=== PATIENT | male | born 1940 | race Caucasian/White ===

== ENCOUNTER 2018-01-03 10:30 | Inpatient (IN) | payer OTHER ==
[2018-01-03] MEDS ORDERED: NS 1,000 ML IV ONE (11:24)
[2018-01-03] MEDS ORDERED: PROMETHAZINE HCL 25 MG/ML INJ IVP ONE (11:25)
[2018-01-03 11:49] LABS: PLATELET COUNT 135 10^3/uL (150-400)
--- NOTE | 2018-01-03 12:20 | CPEKG ---
Heart Rate: 56 RR Interval: 1071 P-R Interval: 196 QRSD Interval: 94 QT Interval: 460 QTC Interval: 444 P Mentcle: 45 QRS Mentcle: -13 T Wave Mentcle: 26 EKG Severity - ABNORMAL ECG - EKG Impression: SINUS RHYTHM EKG Impression: LEFT ATRIAL ABNORMALITY Electronically Signed By: Linh Valentine 03-Jan-2018 15:21:49
[2018-01-03 12:32] LABS: INR 3.52 (0.83-1.16)
[2018-01-03] MEDS ORDERED: PANTOPRAZOLE SODIUM 40 MG VIAL IVP ONE (12:35)
--- NOTE | 2018-01-03 13:50 | EDPHY ---
H & P Stated Complaint: n/v/d dizzyness back pain Time Seen by Provider: 01/03/18 11:01 HPI/ROS: CHIEF COMPLAINT: Abdominal pain with nausea vomiting and diarrhea HISTORY OF PRESENT ILLNESS: Patient is a 77-year-old male with a history of lung transplant and multiple lower extremity DVTs here complaining of nausea vomiting and diarrhea for the last 3 days. Patient denies any history of gastrointestinal bleed or diverticulitis. He has noticed dark stools for the last 2 or 3 days. He was evaluated by Pulmonary Clinic at the [facility] in [place] earlier this week and was told that he was doing quite well. He noticed acutely worsening abdominal pain this morning and felt dizzy while home. Dizziness is described as lightheaded with movement which improved while stationary and denies any vertiginous symptoms. He is able to walk without difficulty. He is taking Coumadin for multiple lower extremity DVTs the last of which was 4 years ago. He has no history of pulmonary embolism or stroke. REVIEW OF SYSTEMS: Constitutional: No fever, no chills. Eyes: No discharge. ENT: No sore throat. Cardiovascular: No chest pain, no palpitations. Respiratory: No cough, no shortness of breath. Gastrointestinal: + abdominal pain, + vomiting. Genitourinary: No hematuria. Musculoskeletal: + back pain. Skin: No rashes. Neurological: No headache, + dizziness. Source: Patient, Family Exam Limitations: No limitations - Personal History Current Tetanus/Diphtheria Vaccine: Yes Current Tetanus Diphtheria and Acellular Pertussis (TDAP): Yes - Medical/Surgical History Hx Asthma: No Hx Chronic Respiratory Disease: No Hx Diabetes: No Hx Cardiac Disease: Yes Hx Renal Disease: No Hx Cirrhosis: No Hx Alcoholism: No Hx HIV/AIDS: No Hx Splenectomy or Spleen Trauma: No Other PMH: hypertension, hyperlipidemia, dvt, RLS, bilat lung transplant, prostatectomy cardiac stents - Social History Smoking Status: Former smoker - Physical Exam Exam: General Appearance: Alert and no distress. Eyes: Pupils equal and round no injection. No nystagmus Respiratory: Chest is nontender, lungs are clear to auscultation. Cardiac: regular rate and rhythm. Gastrointestinal: Abdomen is soft and nontender other than mild epigastric pain with deep palpation, no masses, bowel sounds normal. Stool is dark brown/ black. Musculoskeletal: Neck is supple and nontender. Extremities have full range of motion and are nontender. Skin: No rashes or lesions. Neuro: Cranial nerves grossly intact moving all 4 extremities Constitutional: Initial Vital Signs Temperature (C) 36.4 C 01/03/18 10:37 Heart Rate 67 01/03/18 10:37 Respiratory Rate 18 01/03/18 10:37 Blood Pressure 104/53 L 01/03/18 10:37 O2 Sat (%) 95 01/03/18 10:37 O2 Delivery Mode Room Air O2 (L/minute) 2 Allergies/Adverse Reactions: levofloxacin [From Levaquin] Allergy (Verified 01/03/18 10:34) Sulfa (Sulfonamide Antibiotics) Allergy (Verified 01/03/18 10:34) Home Medications: Medication Instructions Recorded Acetylcysteine 600 mg PO BID 03/26/16 [Y-Dmnxoe-w-Cysteine] Alendronate Sodium 35 mg PO 03/26/16 Azithromycin 500 mg PO [facility] 03/26/16 Docusate Sodium [Colace 100 MG (*)] 200 mg PO BID 03/26/16 Everolimus [Zortress] 0.25 mg PO BID 03/26/16 Ferrous Sulfate [Ferrous Sulf 325 325 mg PO DAILY 03/26/16 MG (*)] Herbals/Supplements -Info Only 1 ea PO DAILY 03/26/16 Itraconazole [Sporanox 100 mg (*)] 100 mg PO 03/26/16 Magnesium Oxide [Magnesium Oxide 400 mg PO BID 03/26/16 400 mg (*)] Metoprolol Tartrate [Lopressor 25 50 mg PO BID 03/26/16 mg (*)] Pramipexole Di-HCl [Mirapex 0.25 0.25 mg PO DAILY@20 03/26/16 mg (*)] Pravastatin Sodium 20 mg PO 03/26/16 Pregabalin [Lyrica 50mg (*)] 50 mg PO TID@,12,22 03/26/16 Pyridoxine HCl [Vitamin B-6 100 mg 50 mg PO 03/26/16 (*)] Sulfamethox/Tmp 800/160 mg 1 tab PO [facility] 03/26/16 [Bactrim DS] Tacrolimus Anhydrous [Prograf 0.5 1 mg PO BID 03/26/16 MG (*)] Valsartan [Diovan (*)] 160 mg PO 03/26/16 clonazePAM [klonoPIN (*)] 1 mg PO DAILY@22 03/26/16 predniSONE 7.5 mg PO DAILY 03/26/16 valGANciclovir [ValCYTE] 450 mg PO BID 03/26/16 Acetaminophen [Tylenol 325mg (*)] 650 mg PO Q4 PRN #0 tab 03/28/16 Warfarin Sodium [Coumadin 2.5MG 1.25 mg PO MOWEFRSA #0 tab 03/28/16 (*)] Warfarin Sodium [Coumadin 2.5MG 2.5 mg PO SUTUTH #0 tab 03/28/16 (*)] traMADol [Ultram 50 mg (*)] 25 - 50 mg PO Q6 PRN #30 tab 03/28/16 Medical Decision Making - Diagnostics EKG Interpretation: Sinus bradycardia without QT prolongation or ischemic changes Imaging Results: Imaging Impressions Abdomen/Pelvis CT 01/03/18 12:36 Impression: 1. Nonobstructive nephrolithiasis bilaterally. 2. Increased size of hiatal hernia. Lower esophageal wall thickening, which could represent esophagitis. 3. No evidence of bowel obstruction. No acute colitis. Relatively minimal diverticular disease. 4. Stable subcentimeter hepatic parenchymal cysts. 5. New, mild L4 superior endplate compression. Findings were communicated by telephone with Dr. Marquez Perdue at 2017 13:20 ED Course/Re-evaluation: 77-year-old male here with abdominal pain nausea and vomiting and diarrhea all likely secondary to upper GI bleed social with elevated INR. Patient was hemodynamically stable in the emergency room with systolic blood pressure ranging from upper 90s to 105. He was mentating well was alert and oriented and did not complain of any chest pain, shortness of breath, dizziness. CT abdomen showed esophagitis but no bowel perforation or inflammation of the colon or diverticulitis. Hospitalist was consulted regarding reversal of INR and recommendation was made to give FFP. Protonix bolus 40 mg was given in addition to 1 L normal saline. Patient felt improved after normal saline bolus. Gastroenterology was paged. Patient was typed and crossed. Differential Diagnosis: Upper GI bleed, diverticulitis, esophageal gait is, hemorrhage, coagulopathy - Data Points Laboratory Results: Laboratory Results 01/03/18 11:35 01/03/18 11:35 01/03/18 01/03/18 01/03/18 13:00 12:26 12:14 WBC RBC Hgb Hct MCV MCH MCHC RDW Plt Count MPV Neut % (Auto) Lymph % (Auto) [place] % (Auto) Eos % (Auto) Baso % (Auto) Nucleat RBC Rel Count Absolute Neuts (auto) Absolute Lymphs (auto) Absolute Monos (auto) Absolute Eos (auto) Absolute Basos (auto) Absolute Nucleated RBC Immature Gran % Immature Gran # PT INR Sodium Potassium Chloride Carbon Dioxide Anion Gap BUN Creatinine Estimated GFR Glucose Calcium POC Troponin I 0.01 ng/mL ng/mL (0.00-0.08) Lipase Urine Color PALE YELLOW Urine Appearance CLEAR Urine pH 6.0 (5.0-7.5) Ur Specific [place] 1.016 (1.002-1.030) Urine Protein NEGATIVE (NEGATIVE) Urine Ketones NEGATIVE (NEGATIVE) Urine Blood NEGATIVE (NEGATIVE) Urine Nitrate NEGATIVE (NEGATIVE) Urine Bilirubin NEGATIVE (NEGATIVE) Urine Urobilinogen NEGATIVE EU EU (0.2-1.0) Ur Leukocyte Esterase NEGATIVE (NEGATIVE) Urine Glucose NEGATIVE (NEGATIVE) Stool Occult Bld Scrn POSITIVE H (NEGATIVE) Patient ABO/Rh Antibody Screen 01/03/18 01/03/18 01/03/18 11:55 11:35 11:35 WBC RBC Hgb Hct MCV MCH MCHC RDW Plt Count MPV Neut % (Auto) Lymph % (Auto) [place] % (Auto) Eos % (Auto) Baso % (Auto) Nucleat RBC Rel Count Absolute Neuts (auto) Absolute Lymphs (auto) Absolute Monos (auto) Absolute Eos (auto) Absolute Basos (auto) Absolute Nucleated RBC Immature Gran % Immature Gran # PT 35.0 SEC H SEC (12.0-15.0) INR 3.52 H (0.83-1.16) Sodium 142 mEq/L mEq/L (135-145) Potassium 4.7 mEq/L mEq/L (3.3-5.0) Chloride 106 mEq/L mEq/L (97-110) Carbon Dioxide 28 mEq/l mEq/l (22-31) Anion Gap 8 mEq/L mEq/L (8-16) BUN 85 mg/dL H mg/dL (7-23) Creatinine 1.7 mg/dL H mg/dL (0.7-1.3) Estimated GFR 39 Glucose 121 mg/dL H mg/dL (70-100) Calcium 8.8 mg/dL mg/dL (8.5-10.4) POC Troponin I Lipase 109 IU/L IU/L (23-300) Urine Color Urine Appearance Urine pH Ur Specific [place] Urine Protein Urine Ketones Urine Blood Urine Nitrate Urine Bilirubin Urine Urobilinogen Ur Leukocyte Esterase Urine Glucose Stool Occult Bld Scrn Patient ABO/Rh Pending Antibody Screen Pending 01/03/18 11:35 WBC 5.93 10^3/uL 10^3/uL (3.80-9.50) RBC 2.42 10^6/uL L 10^6/uL (4.40-6.38) Hgb 7.8 g/dL L g/dL (13.7-17.5) Hct 24.1 % L % (40.0-51.0) MCV 99.6 fL fL (81.5-99.8) MCH 32.2 pg pg (27.9-34.1) MCHC 32.4 g/dL g/dL (32.4-36.7) RDW 15.7 % H % (11.5-15.2) Plt Count 135 10^3/uL L 10^3/uL (150-400) MPV 9.7 fL fL (8.7-11.7) Neut % (Auto) 73.3 % % (39.3-74.2) Lymph % (Auto) 14.8 % L % (15.0-45.0) [place] % (Auto) 10.5 % % (4.5-13.0) Eos % (Auto) 0.7 % % (0.6-7.6) Baso % (Auto) 0.2 % L % (0.3-1.7) Nucleat RBC Rel Count 0.0 % % (0.0-0.2) Absolute Neuts (auto) 4.35 10^3/uL 10^3/uL (1.70-6.50) Absolute Lymphs (auto) 0.88 10^3/uL L 10^3/uL (1.00-3.00) Absolute Monos (auto) 0.62 10^3/uL 10^3/uL (0.30-0.80) Absolute Eos (auto) 0.04 10^3/uL 10^3/uL (0.03-0.40) Absolute Basos (auto) 0.01 10^3/uL L 10^3/uL (0.02-0.10) Absolute Nucleated RBC 0.00 10^3/uL 10^3/uL (0-0.01) Immature Gran % 0.5 % % (0.0-1.1) Immature Gran # 0.03 10^3/uL 10^3/uL (0.00-0.10) PT INR Sodium Potassium Chloride Carbon Dioxide Anion Gap BUN Creatinine Estimated GFR Glucose Calcium POC Troponin I Lipase Urine Color Urine Appearance Urine pH Ur Specific [place] Urine Protein Urine Ketones Urine Blood Urine Nitrate Urine Bilirubin Urine Urobilinogen Ur Leukocyte Esterase Urine Glucose Stool Occult Bld Scrn Patient ABO/Rh Antibody Screen Medications Given: Discontinued Medications Sodium Chloride (Ns) 1,000 mls @ 0 mls/hr IV EDNOW ONE; Wide Open PRN Reason: Protocol Stop: 01/03/18 11:25 Last Admin: 01/03/18 11:40 Dose: 1,000 mls Pantoprazole Sodium (Protonix) 40 mg IVP ONCE ONE Stop: 01/03/18 12:36 Last Admin: 01/03/18 12:53 Dose: 40 mg Promethazine HCl (Phenergan) 12.5 mg IVP ONCE ONE Stop: 01/03/18 11:26 Last Admin: 01/03/18 11:41 Dose: 12.5 mg Point of Care Test Results: Chemistry 01/03/18 12:14 POC Troponin I 0.01 ng/mL ng/mL (0.00-0.08)
[2018-01-03] MEDS ORDERED: ONDANSETRON DISINTEGRATING 4 MG TAB PO PRN (14:56)
[2018-01-03] MEDS ORDERED: ONDANSETRON 4 MG/2 ML VIAL IVP PRN (14:56)
[2018-01-03] MEDS ORDERED: NS 1,000 ML IV SCH (15:00)
[2018-01-03] MEDS ORDERED: PANTOPRAZOLE SODIUM 40 MG VIAL IVP SCH (15:00)
--- NOTE | 2018-01-03 15:15 | PDGENHP ---
History and Physical - Chief Complaint GIB - History of Present Illness 77 yo male with h/o lung transplant, htn, hld presents to ED with N/V/D and dark stool. He developed low back pain 4 days ago. He has known degenerative disc disease at L5-S1. This spread into his left side and has been persistent for past 4 days. Yesterday, he developed epigastric abdominal pain. This morning he felt dizzy and clammy. He had multiple episodes of diarrhea, which he describes as dark and loose. Denies BPBRP or melena. He felt very nauseous and tried to vomit, but was unable to bring anything up. He is on coumadin for h/o recurrent DVT x2, last diagnosed 4 yrs ago. INR is 3.5. His first DVT was provoked by long distance travel. The 2nd DVT was unprovoked. He denies CP, felt a little SOB during diarrhea and dizziness. He denies weight loss. He notes a distant h/o PUD, diagnosed by endoscopy. He came to the ED and was found to have a hgb of 7.8 with heme positive stool. He is admitted for further evaluation of GI bleed. History Information - Allergies/Home Medication List Allergies/Adverse Reactions: levofloxacin [From Levaquin] Allergy (Verified 01/03/18 10:34) Sulfa (Sulfonamide Antibiotics) Allergy (Verified 01/03/18 10:34) Home Medications: Alendronate Sodium 35 mg PO [facility]INES 03/26/16 [Last Taken 12/29/17] Azithromycin 500 mg PO MWF 03/26/16 [Last Taken 03/26/16] Docusate Sodium [Colace 100 MG (*)] 200 mg PO BID 03/26/16 [Last Taken 01/03/18] Everolimus [Zortress] 0.25 mg PO BID 03/26/16 [Last Taken 01/03/18] Ferrous Sulfate [Ferrous Sulf 325 MG (*)] 325 mg PO DAILY 03/26/16 [Last Taken 01/03/18] Herbals/Supplements -Info Only 1 ea PO DAILY 03/26/16 [Last Taken Unknown] Itraconazole [Sporanox 100 mg (*)] 100 mg PO HS 03/26/16 [Last Taken 03/26/16] Magnesium Oxide [Magnesium Oxide 400 mg (*)] 400 mg PO BID 03/26/16 [Last Taken 01/02/18] Metoprolol Tartrate [Lopressor 25 mg (*)] 25 mg PO BID 03/26/16 [Last Taken ] Pramipexole Di-HCl [Mirapex 0.25 mg (*)] 0.25 mg PO DAILY@20 03/26/16 [Last Taken 01/03/18] Pravastatin Sodium 20 mg PO HS 03/26/16 [Last Taken 01/02/18] Pregabalin [Lyrica 50mg (*)] 50 mg PO TID@,,03/26/16 [Last Taken 01/03/18 ] Pyridoxine HCl [Vitamin B-6 100 mg (*)] 50 mg PO HS 03/26/16 [Last Taken ] Sulfamethox/Tmp 800/160 mg [Bactrim DS] 1 tab PO MWF 03/26/16 [Last Taken ] Tacrolimus Anhydrous [Prograf 0.5 MG (*)] 1 mg PO BID 03/26/16 [Last Taken 01/03] Valsartan [Diovan (*)] 160 mg PO HS 03/26/16 [Last Taken 01/02/18] predniSONE 5 mg PO DAILY 03/26/16 [Last Taken 01/03/18] valGANciclovir [ValCYTE] 450 mg PO BID 03/26/16 [Last Taken 01/03/18] Calcium Carb W/Vit D [Calcium Carb W/Vit D 500/200 (*)] 500 mg PO BID 01/03/18 [ Last Taken 01/02/18] Warfarin Sodium [Coumadin 2.5MG (*)] 1.25 mg PO SUTUTH 01/03/18 [Last Taken ] Warfarin Sodium [Coumadin 2.5MG (*)] 2.5 mg PO MOWEFRSA 01/03/18 [Last Taken ] I have personally reviewed and updated: family history, medical history, social history, surgical history - Past Medical History coronary artery disease, DVT, GERD, hypertension, hyperlipidemia Additional medical history: CAD - stent 2001. HAL on cpap. RLS - Surgical History Additional surgical history: Lung transplant 2010 for COPD. prostatectomy 2015. Moh's surgery for BCC and SCC. Shmuel fundoplication 2013 - Family History Additional family history: Dad age 49 colon cancer - Social History Smoking Status: Former smoker Alcohol Use: Other (1 drink a day) Drug Use: None Additional social history: , lives independently, he is retired property accountant Review of Systems Review of Systems: ROS: 10pt was reviewed & negative except for what was stated in HPI & below Physical Exam Physical Exam: Temp Pulse Resp BP Pulse Ox 36.7 C 61 16 130/64 H 95 01/03/18 14:28 01/03/18 14:28 01/03/18 14:28 01/03/18 14:28 01/03/18 14:28 Constitutional: no apparent distress Eyes: PERRL Ears, Nose, Mouth, Throat: moist mucous membranes Cardiovascular: regular rate and rhythym Respiratory: no respiratory distress, clear to auscultation Gastrointestinal: normoactive bowel sounds, soft, non-tender abdomen Skin: warm Musculoskeletal: full muscle strength Neurologic: AAOx3 Psychiatric: interacting appropriately Lab Data & Imaging Review 01/03/18 15:20 01/03/18 11:35 WBC 5.93 10^3/uL (3.80-9.50) 01/03/18 11:35 RBC 2.42 10^6/uL (4.40-6.38) L 01/03/18 11:35 Hgb 7.8 g/dL (13.7-17.5) L 01/03/18 11:35 Hct 24.1 % (40.0-51.0) L 01/03/18 11:35 MCV 99.6 fL (81.5-99.8) 01/03/18 11:35 MCH 32.2 pg (27.9-34.1) 01/03/18 11:35 MCHC 32.4 g/dL (32.4-36.7) 01/03/18 11:35 RDW 15.7 % (11.5-15.2) H 01/03/18 11:35 Plt Count 135 10^3/uL (150-400) L 01/03/18 11:35 MPV 9.7 fL (8.7-11.7) 01/03/18 11:35 Neut % (Auto) 73.3 % (39.3-74.2) 01/03/18 11:35 Lymph % (Auto) 14.8 % (15.0-45.0) L 01/03/18 11:35 [place] % (Auto) 10.5 % (4.5-13.0) 01/03/18 11:35 Eos % (Auto) 0.7 % (0.6-7.6) 01/03/18 11:35 Baso % (Auto) 0.2 % (0.3-1.7) L 01/03/18 11:35 Nucleat RBC Rel Count 0.0 % (0.0-0.2) 01/03/18 11:35 Absolute Neuts (auto) 4.35 10^3/uL (1.70-6.50) 01/03/18 11:35 Absolute Lymphs (auto) 0.88 10^3/uL (1.00-3.00) L 01/03/18 11:35 Absolute Monos (auto) 0.62 10^3/uL (0.30-0.80) 01/03/18 11:35 Absolute Eos (auto) 0.04 10^3/uL (0.03-0.40) 01/03/18 11:35 Absolute Basos (auto) 0.01 10^3/uL (0.02-0.10) L 01/03/18 11:35 Absolute Nucleated RBC 0.00 10^3/uL (0-0.01) 01/03/18 11:35 Immature Gran % 0.5 % (0.0-1.1) 01/03/18 11:35 Immature Gran # 0.03 10^3/uL (0.00-0.10) 01/03/18 11:35 PT 35.0 SEC (12.0-15.0) H 01/03/18 11:55 INR 3.52 (0.83-1.16) H 01/03/18 11:55 Sodium 142 mEq/L (135-145) 01/03/18 11:35 Potassium 4.7 mEq/L (3.3-5.0) 01/03/18 11:35 Chloride 106 mEq/L (97-110) 01/03/18 11:35 Carbon Dioxide 28 mEq/l (22-31) 01/03/18 11:35 Anion Gap 8 mEq/L (8-16) 01/03/18 11:35 BUN 85 mg/dL (7-23) H 01/03/18 11:35 Creatinine 1.7 mg/dL (0.7-1.3) H 01/03/18 11:35 Estimated GFR 39 01/03/18 11:35 Glucose 121 mg/dL (70-100) H 01/03/18 11:35 Calcium 8.8 mg/dL (8.5-10.4) 01/03/18 11:35 POC Troponin I 0.01 ng/mL (0.00-0.08) 01/03/18 12:14 Lipase 109 IU/L (23-300) 01/03/18 11:35 Urine Color PALE YELLOW 01/03/18 13:00 Urine Appearance CLEAR 01/03/18 13:00 Urine pH 6.0 (5.0-7.5) 01/03/18 13:00 Ur Specific [place] 1.016 (1.002-1.030) 01/03/18 13:00 Urine Protein NEGATIVE (NEGATIVE) 01/03/18 13:00 Urine Ketones NEGATIVE (NEGATIVE) 01/03/18 13:00 Urine Blood NEGATIVE (NEGATIVE) 01/03/18 13:00 Urine Nitrate NEGATIVE (NEGATIVE) 01/03/18 13:00 Urine Bilirubin NEGATIVE (NEGATIVE) 01/03/18 13:00 Urine Urobilinogen NEGATIVE EU (0.2-1.0) 01/03/18 13:00 Ur Leukocyte Esterase NEGATIVE (NEGATIVE) 01/03/18 13:00 Urine Glucose NEGATIVE (NEGATIVE) 01/03/18 13:00 Stool Occult Bld Scrn POSITIVE (NEGATIVE) H 01/03/18 12:26 Patient ABO/Rh A POSITIVE 01/03/18 11:35 Antibody Screen NEGATIVE 01/03/18 11:35 Assessment & Plan Assessment: 77 yo male with h/o DVT x2 on chronic anticoagulation admitted with GIB GIB - hemodynamically stable. Hgb was ~12 03/2016, now 7.8 --> 7.5. EGD today neg for upper GI source of bleeding. Note positive family h/o colon cancer. Pt states he is due for colonoscopy. -1 u prbc's now to keep hgb >8 given CAD -trend h&h -prep for colonoscopy in am per Dr. Acevedo Supratherapeutic INR of 3.5 on arrival - 2 u FFP, vit K for reversal, follow. May require repeat FFP in am if still elevated. H/O DVT x2 - last DVT was 4 yrs ago. -INR reversal as above Diarrhea - send GI pathogen panel, c-scope planned for am Acute on chronic back pain - CT showed new, mild L4 compression fx -consider MRI L-spine for further evaluation once stabilized from GIB standpoint -pain control: tylenol, prn oxy, dilaudid Hypertension - Normotensive on arrival. With suspected GI bleed, defer anti- hypertensives for now, resume as indicated CAD s/p stent - resume BB when it's clear BP will tolerate, cont statin, no anti -platelets with GIB H/O lung transplant - Cont tacrolimus, everolimus, pplx meds Immunosuppression Full code Dispo - admit to inpatient, anticipate >48 hrs hospitalization for ongoing management of GIB, diarrhea, back pain
[2018-01-03] MEDS ORDERED: ACETAMINOPHEN 325 MG TAB PO PRN (15:33)
[2018-01-03] MEDS ORDERED: traMADol 50 MG TAB PO PRN (15:33)
[2018-01-03] MEDS ORDERED: MIDAZOLAM 2 MG/2 ML VIAL ONE (16:47)
[2018-01-03] MEDS ORDERED: EPINEPHrine 1 MG/10 ML SYR IVP ONE (16:47)
[2018-01-03] MEDS ORDERED: fentaNYL 100 MCG/2 ML INJ ONE (16:47)
--- NOTE | 2018-01-03 17:01 | PDPROPOC ---
Sedation Plan of Care Sedation Plan of Care: mental status noted, patient educated of risks, benefits , alternatives, patient can tolerate sedation ASA Classification: ASA 2 Planned drugs: fentanyl, midazolam Mallampati Score: Class 1 Mallampati Reference Image: Patient passed 3-3-2 rule?: Yes
[2018-01-03] MEDS ORDERED: PEG 3350/NA SULF,BICARB,CL/KCL (GAVILYTE-G) 4000 ML BTL PO ONE (17:20)
--- NOTE | 2018-01-03 17:26 | GIREPORT ---
[facility] - Endoscopy Department Patient Name: Jaime Crews Procedure Date: 01/03/2018 3:49 PM Patient Type: Inpatient Attending MD/ ER Physician: Anshul Acevedo MD Procedure: Upper GI endoscopy Indications: Note dictated, consult appreciated. Melena (confirmed by rectal exam). Denies heartburn. Last colonoscopy several years ago; "due for another one," as per his transplant doctors. Providers: Anshul Acevedo MD Medicines: Fentanyl 100 micrograms IV, Midazolam 3.5 mg IV Complications: No immediate complications. Description of Procedure: After obtaining informed consent, the endoscope was passed under direct vision. Throughout the procedure, the patient's blood pressure, pulse, and oxygen saturations were monitored continuously. The Endoscope was intro duced through the mouth, and advanced to the second part of duodenum. Findings: No blood present. The esophagus was normal. No significant hiatal hernia or thickened esophagus (suspect CT false). The stomach was normal. The examined duodenum and ampulla were normal. Estimated Blood Loss: Estimated blood loss: none. Post Op Diagnosis: - No source for anemia, melena found. ? colonic source, exacerbated by overanticoagulation. Recommendation: - clears; NPO p MN - prep - colonoscopy tomorrow - serial H/Hs, trf prbc prn. If Hct drops significantly, suggestive of continued active bleeding (doubt), recommend totally reversing anticoagulation with vit K, more FFP, etc. - change PPI to oral preventatively - d/c iron, colace for prep Thank you for allowing me to help in the management of this patient. Attending Participation: I personally performed the entire procedure. Kristina Landers MD Anshul Acevedo MD 01/03/2018 5:26:19 PM This report has been signed electronicallyPeter MD Kristina Number of Addenda: 0 Note Initiated On: 01/03/2018 3:49 PM [email or web address]
[2018-01-03] MEDS ORDERED: fentaNYL 100 MCG/2 ML INJ IVP ONE (17:42)
[2018-01-03] MEDS ORDERED: MIDAZOLAM 2 MG/2 ML VIAL IVP ONE (17:42)
--- NOTE | 2018-01-03 18:11 | GCON ---
[f rep st] CONSULTATION GASTROENTEROLOGY INPATIENT CONSULTATION DATE OF CONSULTATION: 01/03/2018 REFERRING PHYSICIAN: Laxmi Ha MD CHIEF COMPLAINT: I was kindly requested to see Thomas by Dr. Laxmi Ha in consultation for a chief complaint of melena and anemia. HISTORY OF PRESENT ILLNESS: He is a 77-year-old white male, who yesterday developed some epigastric abdominal pain. This morning, he felt dizzy, clammy. He had multiple episodes of diarrhea, which he describes as dark in color, loose. No bright red blood. He had some nausea. He denies aspirin, nonsteroidals. He denies heartburn. He has a distant history of peptic ulcer, diagnosed by endoscopy. He states he had a colonoscopy done several years ago, which was "okay." He states his transplant doctors would like him to get another one this year. PAST MEDICAL HISTORY: 1. As above. 2. Lung transplant in 2010. 3. Coronary artery disease. 4. Hypertension. 5. Elevated lipids. 6. CAD with a heart stent. 7. Prostatectomy. 8. Mohs surgery. 9. Past Shmuel fundoplication. 10. Otherwise, noncontributory. MEDICATIONS: Home medications include alendronate, azithromycin, Colace, iron, Sporanox, magnesium oxide, Lopressor, Mirapex, a statin, Lyrica, Tacrolimus, Diovan, 5 mg of prednisone daily, Valcyte and Coumadin. Inpatient medications include IV pantoprazole 40 mg q.6 and IV fluids. SOCIAL HISTORY: He is . His 's name is Pricilla, telephone #[phone]. FAMILY HISTORY: Negative for similar bleeding. REVIEW OF SYSTEMS: Positive pertinent review of systems as per my HPI. Otherwise, complete review of systems is negative. PHYSICAL EXAM: CONSTITUTIONAL: Nontoxic-appearing, pleasant gentleman. SKIN: Warm, dry. EYES: Pupils equal, round, reactive to light and accommodation. EARS, NOSE, MOUTH AND THROAT: Oropharynx without masses, moist mucosa. HEART: Normal S2, normal PMI. RESPIRATORY: Lungs clear to auscultation and percussion anteriorly. GASTROINTESTINAL: Abdomen soft, nontender. NEUROLOGIC: Grossly nonfocal, cranial nerves grossly intact. PSYCHIATRIC: Orientation, insight appropriate. MUSCULOSKELETAL: Strength grossly normal throughout, normal station. LABORATORIES: Include the above. Hematocrit 24.1%, then 23.1%. MCV normal. Platelet count 135,000. Prothrombin time 35 with an INR 3.52. BUN 85 with a creatinine of 1.7. Stool Hemoccult positive. Urinalysis negative. CT scan of the abdomen and pelvis without IV contrast shows hiatal hernia and some thickened esophageal wall distally. Bilateral kidney stones, nonobstructive. ASSESSMENT: Anemia, probable melena. This most likely represents an upper gastrointestinal source. With his past history, a recurrent peptic ulcer is possible. Gastritis, AVM, gastric cancer also possible. A colonic source, such as in the right colon, causing black stools is possible, but less likely. PLAN: 1. Urgent upper endoscopy. Certainly, with his age, lung transplant, coronary artery disease, long-term use of anticoagulation, elevated lipids, etc., he is at increased risk for this procedure. However, suspect the benefits outweigh the risks, and suspect he will do well. 2. Further management depending on the above. Thank you for allowing me to help in the management of this patient. Copy requested to: Transplant Physician (if known) /[id number]/[id number]
[2018-01-03] MEDS ORDERED: PHYTONADIONE 5 MG in NS 50 ML IV ONE (18:56)
[2018-01-03] MEDS ORDERED: oxyCODONE IR 5 MG TAB PO PRN (19:20)
--- NOTE | 2018-01-03 19:34 | PDMN ---
Medical Necessity Medical necessity: C/M review: est. 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
[2018-01-03] MEDS ORDERED: DOCUSATE SODIUM 100 MG CAP PO SCH (21:00)
[2018-01-03] MEDS: TACROLIMUS 1 MG CAP PO SCH (21:15)
[2018-01-03] MEDS: PRAVASTATIN SODIUM 20 MG TAB PO SCH (21:15)
[2018-01-03] MEDS: PRAMIPEXOLE 0.25 MG TAB PO SCH (21:15)
[2018-01-03] MEDS: PREGABALIN 50 MG CAP PO SCH (21:15)
[2018-01-03] MEDS: MAGNESIUM OXIDE 400 MG TAB PO SCH (21:17)
[2018-01-03] MEDS: ITRACONAZOLE 100 MG CAP PO SCH (21:17)
[2018-01-03] MEDS: EVEROLIMUS 0.25 MG PO SCH (21:19)
[2018-01-03 23:23] LABS: INR 1.95 (0.83-1.16); PROTIME(PATIENT) 22.3 SEC (12.0-15.0)
[2018-01-04 05:20] LABS: INR 1.51 (0.83-1.16); PROTIME(PATIENT) 18.4 SEC (12.0-15.0)
[2018-01-04 05:27] LABS: PLATELET COUNT 112 10^3/uL (150-400)
[2018-01-04] MEDS: MAGNESIUM OXIDE 400 MG TAB PO SCH ×2 (08:54→20:24)
[2018-01-04] MEDS: predniSONE 5 MG TAB PO SCH (08:54)
[2018-01-04] MEDS: PREGABALIN 50 MG CAP PO SCH ×3 (08:54→22:03)
[2018-01-04] MEDS: TACROLIMUS 1 MG CAP PO SCH ×2 (08:54→20:24)
[2018-01-04] MEDS: EVEROLIMUS 0.25 MG PO SCH ×3 (08:55→20:27)
[2018-01-04] MEDS: PANTOPRAZOLE SODIUM 40 MG TAB PO SCH (08:55)
[2018-01-04] MEDS ORDERED: FERROUS SULFATE 325 MG TAB PO SCH (09:00)
[2018-01-04] MEDS: HYDROmorphONE/DILAUDID 1 MG/ML INJ IVP PRN ×2 (09:34→10:28)
--- NOTE | 2018-01-04 11:54 | ASMTCMCOM ---
CM Note CM Note Notes: CM reviewed Pt's records for D?C planning. Pt is a 77 y/o male who has been hospitalized due to a GI bleed. An upper endoscopy was ordered. Pt presently lives independently with his , [facility] #[phone]. D/C needs will continue to be evaluated. D/C Plan: TBD Date Signed: 01/04/2018 11:54 AM Electronically Signed By:Vashti Mohr
--- NOTE | 2018-01-04 14:12 | HOSPPROG ---
Hospitalist Progress Note Assessment/Plan: 77 yo male with h/o DVT x2 on chronic anticoagulation admitted with anemia with presumed GIB GIB - hemodynamically stable. Hgb was ~12 03/2016. Since admission hgb 7.8 --> 6.1 --> 8.0 after 2 units prbcs. EGD neg for upper GI source of bleeding. Note positive family h/o colon cancer. -colonoscopy today -s/p 2 u prbc's -cont to trend h&h, transfuse as indicated Supratherapeutic INR of 3.5 on arrival - 2 u FFP, vit K for reversal, INR this am 1.5. H/O DVT x2 - last DVT was 4 yrs ago. -INR reversal as above Diarrhea - GI pathogen panel neg -c-scope today as above Acute on chronic back pain - CT showed new, mild L4 compression fx -MRI in am to evaluate chronicity and determine if candidate for intervention / stabilization while INR sub-therapeutic given severity of pain -pain control: tylenol, prn oxy, dilaudid Hypertension - Normotensive on arrival. With suspected GI bleed, defer anti- hypertensives for now, resume as indicated CAD s/p stent - resume BB when it's clear BP will tolerate, cont statin, no anti -platelets with GIB H/O lung transplant - Cont tacrolimus, everolimus, pplx meds Immunosuppression Full code Dispo - cont inpt, ADD uncertain Subjective: Pt feels ok. Completed colon prep, no BRBPR, but some possibly old dark stool. No fevers/chills. Still with significant low back pain. No CP, SOB or dizziness. Objective: Vital Signs Temp Pulse Resp BP Pulse Ox 36.4 C 72 16 165/69 H 99 01/04/18 11:29 01/04/18 11:29 01/04/18 11:29 01/04/18 11:29 01/04/18 11:29 Microbiology 01/04/18 00:30 Gastrointestinal Tract Panel (PCR) - Final Stool No Organism Detected Laboratory Results 01/04/18 11:20 01/04/18 04:37 01/03/18 01/04/18 01/05/18 05:59 05:59 05:59 Intake Total 2600 Output Total 452 Balance 2148 PT 18.4 SEC (12.0-15.0) H 01/04/18 04:37 INR 1.51 (0.83-1.16) H 01/04/18 04:37 - Physical Exam Constitutional: no apparent distress Eyes: PERRL Ears, Nose, Mouth, Throat: moist mucous membranes Cardiovascular: regular rate and rhythym Respiratory: no respiratory distress, clear to auscultation Gastrointestinal: normoactive bowel sounds, soft, non-tender abdomen Skin: warm Musculoskeletal: full muscle strength, other (+midline lumbar tenderness over L4 vertebra) Neurologic: AAOx3 Psychiatric: interacting appropriately ICD10 Worksheet Patient Problems: Problems Problem Status Onset Hematuria Acute Immunosuppressed status Acute Lung transplant status, bilateral Acute Pelvic fluid collection Acute
--- NOTE | 2018-01-04 14:54 | PDANEPAE ---
ANE History of Present Illness anemia s/f colonoscopy ANE Past Medical History - Cardiovascular History Hx Chest Pain: No Hx Coronary Artery / Peripheral Vascular Disease: No - Pulmonary History Hx COPD: Yes Hx Oxygen in Use at Home: No Hx Sleep Apnea: Yes Sleep Apnea Screening Result - Last Documented: Positive Pulmonary History Comment: lung transplant - Endocrine History Hx Diabetes: No - Liver History Hx Hepatic Disorders: No Hepatic History Comment: GERD - Cancer History Hx Cancer: Yes Cancer History Comment: prostate ca - Chronic Pain History Chronic Pain: Yes ANE Review of Systems Review of Systems: - Exercise capacity Exercise capacity: >=4 METS ANE Patient History - Allergies Allergies/Adverse Reactions: levofloxacin [From Levaquin] Allergy (Verified 01/03/18 10:34) Sulfa (Sulfonamide Antibiotics) Allergy (Verified 01/03/18 10:34) - Home Medications Home medications: home medication list seen and reviewed Home Medications: Alendronate Sodium 35 mg PO MARTINES 03/26/16 [Last Taken 12/29/17] Azithromycin 500 mg PO MWF 03/26/16 [Last Taken 03/26/16] Docusate Sodium [Colace 100 MG (*)] 200 mg PO BID 03/26/16 [Last Taken 01/03/18] Everolimus [Zortress] 0.25 mg PO HS 03/26/16 [Last Taken 01/03/18] Ferrous Sulfate [Ferrous Sulf 325 MG (*)] 325 mg PO DAILY 03/26/16 [Last Taken 01/03/18] Herbals/Supplements -Info Only 1 ea PO DAILY 03/26/16 [Last Taken Unknown] Itraconazole [Sporanox 100 mg (*)] 100 mg PO HS 03/26/16 [Last Taken 03/26/16] Magnesium Oxide [Magnesium Oxide 400 mg (*)] 400 mg PO BID 03/26/16 [Last Taken 01/02/18] Metoprolol Tartrate [Lopressor 25 mg (*)] 25 mg PO BID 03/26/16 [Last Taken ] Pramipexole Di-HCl [Mirapex 0.25 mg (*)] 0.25 mg PO DAILY@20 03/26/16 [Last Taken 01/03/18] Pravastatin Sodium 20 mg PO HS 03/26/16 [Last Taken 01/02/18] Pregabalin [Lyrica 50mg (*)] 50 mg PO TID@09,12,22 03/26/16 [Last Taken 01/03/18 ] Pyridoxine HCl [Vitamin B-6 100 mg (*)] 50 mg PO HS 03/26/16 [Last Taken ] Sulfamethox/Tmp 800/160 mg [Bactrim DS] 1 tab PO MWF 03/26/16 [Last Taken ] Tacrolimus Anhydrous [Prograf 0.5 MG (*)] 1 mg PO BID 03/26/16 [Last Taken 01/03] Valsartan [Diovan (*)] 160 mg PO HS 03/26/16 [Last Taken 01/02/18] predniSONE 5 mg PO DAILY 03/26/16 [Last Taken 01/03/18] valGANciclovir [ValCYTE] 450 mg PO BID 03/26/16 [Last Taken 01/03/18] Calcium Carb W/Vit D [Calcium Carb W/Vit D 500/200 (*)] 500 mg PO BID 01/03/18 [ Last Taken 01/02/18] Warfarin Sodium [Coumadin 2.5MG (*)] 1.25 mg PO SUTUTH 01/03/18 [Last Taken ] Warfarin Sodium [Coumadin 2.5MG (*)] 2.5 mg PO MOWEFRSA 01/03/18 [Last Taken ] Everolimus [Zortress] 0.5 mg PO DAILY 01/04/18 [Last Taken Unknown] - NPO status NPO Status: no food or drink >8 hours NPO Since - Liquids (Date): 01/04/18 NPO Since - Liquids (Time): 12:01 NPO Since - Solids (Date): 01/04/18 NPO Since - Solids (Time): 12:01 - Anes Hx Anes Hx: no prior problems - Smoking Hx Smoking Status: Former smoker - Alcohol Use Alcohol Use: None (1 drink a day) - Family Anes Hx Family Anes Hx: none ANE Labs/Vital Signs - Labs Result Diagrams: 01/04/18 11:20 01/04/18 04:37 - Vital Signs Blood Pressure: 165/69 Heart Rate: 72 Respiratory Rate: 16 O2 Sat (%): 99 Height: 185.4 cm Weight: 83.9 kg ANE Physical Exam - Airway Mallampati Score: Class 2 Mouth exam: poor dentition - Pulmonary Pulmonary: no respiratory distress - Cardiovascular Cardiovascular: regular rate and rhythym - ASA Status ASA Status: III ANE Anesthesia Plan Anesthesia Plan: GA with mask Total IV Anesthesia: Yes
[2018-01-04] MEDS ORDERED: PROPOFOL/EMULSION 500 MG/50 ML BOTTLE IV ONE (14:55)
[2018-01-04] MEDS ORDERED: LIDOCAINE 2% 100 MG/5 ML SYR ONE (14:56)
[2018-01-04] MEDS ORDERED: PROPOFOL 200 MG/20 ML VIAL ONE ×2 (15:21→15:32)
[2018-01-04] MEDS ORDERED: ONDANSETRON 4 MG/2 ML VIAL IVP PRN (15:40)
[2018-01-04] MEDS ORDERED: PROMETHAZINE HCL 25 MG/ML INJ IVP PRN (15:40)
[2018-01-04] MEDS ORDERED: DEXAMETHASONE 4 MG/ML VIAL IVP PRN (15:40)
[2018-01-04] MEDS ORDERED: LABETALOL HCL 5 MG/ML 20 ML MDV IVP PRN (15:40)
[2018-01-04] MEDS ORDERED: PHENYLEPHRINE HCL 100 MCG/ML SYR IVP PRN (15:40)
[2018-01-04] MEDS ORDERED: LR 500 ML IV PRN (15:40)
[2018-01-04] MEDS ORDERED: NALOXONE HCL 0.4 MG/ML INJ IVP PRN (15:40)
[2018-01-04] MEDS ORDERED: HYDROCODONE/APAP 5/325 TAB PO PRN (15:40)
[2018-01-04] MEDS ORDERED: ALBUTEROL 3 ML DEYVIAL IH PRN (15:40)
[2018-01-04] MEDS ORDERED: MEPERIDINE 25 MG/0.5 ML AMP IVP PRN (15:40)
[2018-01-04] MEDS ORDERED: oxyCODONE IR 5 MG TAB PO PRN (15:40)
[2018-01-04] MEDS ORDERED: fentaNYL 100 MCG/2 ML INJ IVP PRN (15:40)
[2018-01-04] MEDS ORDERED: ACETAMINOPHEN 500 MG TAB PO PRN (15:40)
--- NOTE | 2018-01-04 15:53 | GIREPORT ---
[facility] - Endoscopy Department Patient Name: Jaime Crews Procedure Date: 01/04/2018 2:13 PM Patient Type: Inpatient Attending MD/ ER Physician: Francis Ding MD Procedure: Colonoscopy Indications: Melena, Acute post hemorrhagic anemia Patient Profile: 77 year old male presents for evaluation of melena/post hemorrhagic ane dylon. He had a recent EGD which was negative. Providers: Francis Ding MD Medicines: Monitored Anesthesia Care Complications: No immediate complications. Estimated blood loss: Minimal. Description of Procedure: After obtaining informed consent, the scope was passed under direct vis ion. Throughout the procedure, the patient's blood pressure, pulse, and oxyg en saturations were monitored continuously. The Colonoscope with irrigatio n channel was introduced through the anus and advanced to the cecum, identified by appendiceal orifice and ileocecal valve. The colonoscopy was performed without difficulty. The patient tolerated the procedure well. The quality of the bowel preparation was adequate to identify polyps on the whole, however, chunks of stool was seen which clogged the scope a few times. This could obscure <6mm polyps in a few areas. The ileocecal jazzmine ve, appendiceal orifice, and rectum were photographed. Findings: The perianal and digital rectal examinations were normal. Diverticula were found in the sigmoid colon and descending colon. Three sessile polyps were found in the cecum. The polyps were 2 to 3 mm in size. These polyps were removed with a cold biopsy forceps. Resection a nd retrieval were complete. A 10 mm polyp was found in the cecum. The polyp was sessile. The polyp was removed with a cold snare. Resection and retrieval were complete. Two sessile polyps were found in the transverse colon. The polyps were 4 to 5 mm in size. These polyps were removed with a cold snare. Resection an d retrieval were complete. Estimated Blood Loss: Estimated blood loss was minimal. Post Op Diagnosis: - Diverticulosis in the sigmoid colon and in the descending colon. - Three 2 to 3 mm polyps in the cecum, removed with a cold biopsy force ps. Resected and retrieved. - One 10 mm polyp in the cecum, removed with a cold snare. Resected and retrieved. - Two 4 to 5 mm polyps in the transverse colon, removed with a cold sna re. Complete resection. Polyp tissue not retrieved. Recommendation: - [facility]. - Repeat colonoscopy in 2 years for surveillance due to prep and # of polyps.. - Advance diet as tolerated. - Continue present medications. - Ok to restart anticoagulation tomorrow. - Await pathology results. - To visualize the small bowel, perform video capsule endoscopy at appointment to be scheduled. - GI will sign off. - Thank you for allowing me to participate in the care of your patient. Attending Participation: I personally performed the entire procedure. Francis Ding MD Francis Ding MD 01/04/2018 3:52:53 PM This report has been signed electronicallyFrancis Ding MD Number of Addenda: 0 Note Initiated On: 01/04/2018 2:13 PM Total Procedure Duration Time 0 hours 41 minutes 43 seconds [email or web address]
--- NOTE | 2018-01-04 17:07 | POSTANESTH ---
Post Anesthetic Evaluation Cardiovascular Status: Normal, Stable Respiratory Status: Normal, Stable Level of Consciousness/Mental Status: Can Participate in Eval Pain Control: Adequate, Prn Tx Ordered Nausea/Vomiting Control: Adequate, Prn Tx Ordered Complications Possibly Related to Anesthesia: None Noted
[2018-01-04] MEDS: ITRACONAZOLE 100 MG CAP PO SCH (20:24)
[2018-01-04] MEDS: PRAVASTATIN SODIUM 20 MG TAB PO SCH (20:24)
[2018-01-04] MEDS: PRAMIPEXOLE 0.25 MG TAB PO SCH (20:24)
[2018-01-05] MEDS: MAGNESIUM OXIDE 400 MG TAB PO SCH ×2 (07:47→20:51)
[2018-01-05] MEDS: METOPROLOL TARTRATE 25 MG TAB PO SCH ×2 (07:48→20:51)
[2018-01-05] MEDS: predniSONE 5 MG TAB PO SCH (07:48)
[2018-01-05] MEDS: PANTOPRAZOLE SODIUM 40 MG TAB PO SCH (07:49)
[2018-01-05] MEDS: TACROLIMUS 1 MG CAP PO SCH ×2 (07:49→20:52)
[2018-01-05] MEDS: PREGABALIN 50 MG CAP PO SCH ×3 (07:49→21:02)
[2018-01-05] MEDS: EVEROLIMUS 0.25 MG PO SCH ×2 (07:50→20:54)
--- NOTE | 2018-01-05 08:14 | SOAPPROG ---
[facility] Progress Note Assessment/Plan: Assessment: Plan: 01/05/18 08:12 A/P 1. GI bleed- with anemia. S/p EGD and colonoscopy with no cause. No evidence of acute GI bleed clinically. Recommend capsule endoscopy as outpatient. Ok to restart anticoagulation. GI will sign off. Thank you for the consultation! Subjective: cc: Follow up GI bleed. Doing well. Complaining of back pain. No abdominal pain. Objective: Vital Signs Temp Pulse Resp BP Pulse Ox 36.5 C 58 L 16 174/83 H 98 01/05/18 07:43 01/05/18 07:43 01/05/18 07:43 01/05/18 07:43 01/05/18 07:43 Microbiology 01/04/18 00:30 Gastrointestinal Tract Panel (PCR) - Final Stool No Organism Detected Laboratory Results 01/05/18 04:20 01/05/18 04:20 01/04/18 01/05/18 01/06/18 05:59 05:59 05:59 Intake Total 2600 650 Output Total 452 25 Balance 2148 625 PT 18.4 SEC (12.0-15.0) H 01/04/18 04:37 INR 1.51 (0.83-1.16) H 01/04/18 04:37 Physical Exam - Physical Exam General Appearance: alert, no apparent distress Respiratory: lungs clear, normal breath sounds Cardiac/Chest: regular rate, rhythm, No diastolic murmur, No systolic murmur, No irregularly irregular Abdomen: normal bowel sounds, non-tender, soft, No guarding, No rebound Skin: normal color, warm/dry Neuro/Psych: alert, normal mood/affect, oriented x 3, No abnormal demurrage agent II-XII ICD10 Worksheet Patient Problems: Problems Problem Status Onset Immunosuppressed status Acute Hematuria Acute Pelvic fluid collection Acute Lung transplant status, bilateral Acute
--- NOTE | 2018-01-05 14:07 | HOSPPROG ---
Hospitalist Progress Note Assessment/Plan: 77 yo male with h/o DVT x2 on chronic anticoagulation admitted with symptomatic anemia 2/2 presumed GIB, no source found on EGD or c-scope. Also, acute and severe low back pain. GIB - hemodynamically stable. Hgb was ~12 03/2016. Since admission hgb 7.8 --> 6.1 --> 7.6 after 2 units prbcs. EGD neg for upper GI source of bleeding. C- scope also unrevealing. No more diarrhea, pain or dizziness. Note positive family h/o colon cancer. -cont to trend h&h (note slight downward trend today) -if h&h stabilizes, ok to resume anti-coagulation per GI -outpt capsule endoscopy to be arranged by GI Supratherapeutic INR of 3.5 on arrival - S/P 2 u FFP, vit K for reversal --> INR 1.5. H/O DVT x2 - last DVT was 4 yrs ago. -INR reversed as above -per GI, ok to resume coumadin, will need lovenox bridge at d/c Acute on chronic back pain - CT showed new, mild L4 compression fx. MRI reviewed with IR, c/w acute compression fracture at L4 -NPO for kyphoplasty in am, cont to hold anti-coagulation for procedure -pain control: tylenol, prn oxy, dilaudid Diarrhea - Resolved, GI pathogen panel neg Hypertension - anti-hypertensives held on admission as BP slightly low with GIB , BP now on the rise -resume metoprolol and ARB CAD s/p stent - resume BB, cont statin, no anti-platelets with GIB H/O lung transplant - Cont tacrolimus, everolimus, pplx meds Immunosuppression Full code Dispo - cont inpt, ADD possibly tomorrow after vertebroplasty if h&h stable Subjective: Pt continues to c/o back pain. No bowel or bladder incontinence. No foot drop or focal weakness. No more diarrhea or black stools. No CP, SOB or dizziness. Eating well. Objective: Vital Signs Temp Pulse Resp BP Pulse Ox 36.4 C 70 17 130/58 H 96 01/05/18 11:14 01/05/18 11:14 01/05/18 11:14 01/05/18 11:14 01/05/18 11:14 Laboratory Results 01/05/18 12:45 01/05/18 04:20 01/04/18 01/05/18 01/06/18 05:59 05:59 05:59 Intake Total 2600 650 Output Total 452 25 Balance 2148 625 PT 18.4 SEC (12.0-15.0) H 01/04/18 04:37 INR 1.51 (0.83-1.16) H 01/04/18 04:37 - Physical Exam Constitutional: no apparent distress Eyes: PERRL Ears, Nose, Mouth, Throat: moist mucous membranes Cardiovascular: regular rate and rhythym Respiratory: no respiratory distress Gastrointestinal: normoactive bowel sounds, soft, non-tender abdomen Skin: warm Musculoskeletal: full muscle strength, other Neurologic: AAOx3, other (5/5 LE muscle strength) Psychiatric: interacting appropriately ICD10 Worksheet Patient Problems: Problems Problem Status Onset Hematuria Acute Immunosuppressed status Acute Lung transplant status, bilateral Acute Pelvic fluid collection Acute
[2018-01-05] MEDS: FLUTICASONE NASAL 120 SPRAYS/16 GM MDI EACHNARE SCH (15:07)
[2018-01-05] MEDS: ITRACONAZOLE 100 MG CAP PO SCH (20:51)
[2018-01-05] MEDS: PRAMIPEXOLE 0.25 MG TAB PO SCH (20:52)
[2018-01-05] MEDS: PRAVASTATIN SODIUM 20 MG TAB PO SCH (20:52)
[2018-01-05] MEDS ORDERED: VALSARTAN 160 MG TAB PO SCH (21:00)
[2018-01-06] MEDS ORDERED: SULFAMETHOX/TMP 800/160 MG 1 TAB PO SCH (08:00)
[2018-01-06] MEDS ORDERED: AZITHROMYCIN 250 MG TAB PO SCH (08:00)
[2018-01-06] MEDS: FLUTICASONE NASAL 120 SPRAYS/16 GM MDI EACHNARE SCH (08:01)
[2018-01-06] MEDS: PREGABALIN 50 MG CAP PO SCH ×2 (08:06→13:52)
[2018-01-06] MEDS: PANTOPRAZOLE SODIUM 40 MG TAB PO SCH (08:06)
[2018-01-06] MEDS: MAGNESIUM OXIDE 400 MG TAB PO SCH (08:06)
[2018-01-06] MEDS: TACROLIMUS 1 MG CAP PO SCH (08:07)
[2018-01-06] MEDS: EVEROLIMUS 0.25 MG PO SCH (08:07)
[2018-01-06] MEDS: METOPROLOL TARTRATE 25 MG TAB PO SCH (08:07)
[2018-01-06] MEDS: predniSONE 5 MG TAB PO SCH (08:07)
[2018-01-06] MEDS ORDERED: MIDAZOLAM 2 MG/2 ML VIAL IVP PRN (11:26)
[2018-01-06] MEDS ORDERED: ceFAZolin 2 GM/SWFI 2 GM/20 ML SYR IVP ONE (11:26)
[2018-01-06] MEDS ORDERED: FLUMAZENIL 0.5 MG/5 ML MDV IVP PRN (11:26)
[2018-01-06] MEDS ORDERED: DEXAMETHASONE 10 MG/ML VIAL IVP ONE (11:26)
[2018-01-06] MEDS ORDERED: fentaNYL 100 MCG/2 ML INJ IVP PRN ×2 (11:26→13:44)
[2018-01-06] MEDS ORDERED: NALOXONE HCL 0.4 MG/ML INJ IVP PRN ×2 (11:26→13:44)
[2018-01-06] MEDS ORDERED: MEPERIDINE 25 MG/ML SYR IVP PRN (11:26)
[2018-01-06] MEDS ORDERED: NS 1,000 ML IV ONE (11:26)
[2018-01-06 11:55] LABS: INR 1.07 (0.83-1.16); PROTIME(PATIENT) 14.1 SEC (12.0-15.0)
[2018-01-06] MEDS ORDERED: ceFAZolin 2 GM/DEXTROSE 100 ML IV ONE (12:00)
--- NOTE | 2018-01-06 12:04 | PDANEPAE ---
ANE History of Present Illness 77 year old L4 compression fx ANE Past Medical History - Cardiovascular History Hx Chest Pain: No Hx Coronary Artery / Peripheral Vascular Disease: Yes - Pulmonary History Hx COPD: Yes Hx Oxygen in Use at Home: No Hx Sleep Apnea: Yes Sleep Apnea Screening Result - Last Documented: Positive Pulmonary History Comment: lung transplant - Endocrine History Hx Diabetes: No - Liver History Hx Hepatic Disorders: No Hepatic History Comment: GERD - Cancer History Hx Cancer: Yes Cancer History Comment: prostate ca - Chronic Pain History Chronic Pain: Yes ANE Review of Systems Review of systems is: negative Review of Systems: ANE Patient History - Allergies Allergies/Adverse Reactions: levofloxacin [From Levaquin] Allergy (Verified 01/03/18 10:34) Sulfa (Sulfonamide Antibiotics) Allergy (Verified 01/03/18 10:34) - Home Medications Home medications: home medication list seen and reviewed Home Medications: Alendronate Sodium 35 mg PO MARTINES 03/26/16 [Last Taken 12/29/17] Azithromycin 500 mg PO MWF 03/26/16 [Last Taken 03/26/16] Docusate Sodium [Colace 100 MG (*)] 200 mg PO BID 03/26/16 [Last Taken 01/03/18] Everolimus [Zortress] 0.25 mg PO HS 03/26/16 [Last Taken 01/03/18] Ferrous Sulfate [Ferrous Sulf 325 MG (*)] 325 mg PO DAILY 03/26/16 [Last Taken 01/03/18] Herbals/Supplements -Info Only 1 ea PO DAILY 03/26/16 [Last Taken Unknown] Itraconazole [Sporanox 100 mg (*)] 100 mg PO HS 03/26/16 [Last Taken 03/26/16] Magnesium Oxide [Magnesium Oxide 400 mg (*)] 400 mg PO BID 03/26/16 [Last Taken 01/02/18] Metoprolol Tartrate [Lopressor 25 mg (*)] 25 mg PO BID 03/26/16 [Last Taken ] Pramipexole Di-HCl [Mirapex 0.25 mg (*)] 0.25 mg PO DAILY@20 03/26/16 [Last Taken 01/03/18] Pravastatin Sodium 20 mg PO HS 03/26/16 [Last Taken 01/02/18] Pregabalin [Lyrica 50mg (*)] 50 mg PO TID@12,22 03/26/16 [Last Taken 01/03/18 ] Pyridoxine HCl [Vitamin B-6 100 mg (*)] 50 mg PO HS 03/26/16 [Last Taken ] Sulfamethox/Tmp 800/160 mg [Bactrim DS] 1 tab PO MWF 03/26/16 [Last Taken ] Tacrolimus Anhydrous [Prograf 0.5 MG (*)] 1 mg PO BID 03/26/16 [Last Taken 01/03] Valsartan [Diovan (*)] 160 mg PO HS 03/26/16 [Last Taken 01/02/18] predniSONE 5 mg PO DAILY 03/26/16 [Last Taken 01/03/18] valGANciclovir [ValCYTE] 450 mg PO BID 03/26/16 [Last Taken 01/03/18] Calcium Carb W/Vit D [Calcium Carb W/Vit D 500/200 (*)] 500 mg PO BID 01/03/18 [ Last Taken 01/02/18] Warfarin Sodium [Coumadin 2.5MG (*)] 1.25 mg PO SUTUTH 01/03/18 [Last Taken ] Warfarin Sodium [Coumadin 2.5MG (*)] 2.5 mg PO MOWEFRSA 01/03/18 [Last Taken ] Everolimus [Zortress] 0.5 mg PO DAILY 01/04/18 [Last Taken Unknown] - NPO status NPO Status: no food or drink >8 hours NPO Since - Liquids (Date): 01/06/18 NPO Since - Liquids (Time): 00:05 NPO Since - Solids (Date): 01/06/18 NPO Since - Solids (Time): 00:05 - Smoking Hx Smoking Status: Former smoker - Alcohol Use Alcohol Use: None (1 drink a day) ANE Labs/Vital Signs - Labs Result Diagrams: 01/06/18 04:11 01/05/18 04:20 - Vital Signs Blood Pressure: 148/72 Heart Rate: 62 Respiratory Rate: 16 O2 Sat (%): 97 Height: 185.4 cm Weight: 83.9 kg ANE Physical Exam - Airway Neck exam: FROM Mallampati Score: Class 2 Mouth exam: normal dental/mouth exam - Pulmonary Pulmonary: no respiratory distress - Cardiovascular Cardiovascular: regular rate and rhythym - ASA Status ASA Status: II ANE Anesthesia Plan Anesthesia Plan: MAC
--- NOTE | 2018-01-06 12:28 | PDGENHP ---
History & Physical Chief Complaint: new back pain History of Present Illness: Reports recent 6/10 midline low back pain after lifting injury. This correlates well with imaging findings of acute-subacute L4 superior endplate fracture. Pertinent Past, Social, Family History: has chronic back pain likely related to L4/5 disc protrusion. Occasional but not constant radiating leg pain bilaterally which may be related. Relevant Physical Exam: Moderate point tenderness upon direct L4 spinous process pressure. Cardiorespiratory Assessment: RRR, nl wob
[2018-01-06] MEDS ORDERED: PROPOFOL/EMULSION 500 MG/50 ML BOTTLE IV ONE (12:29)
[2018-01-06] MEDS ORDERED: fentaNYL 100 MCG/2 ML INJ ONE ×2 (12:29→14:03)
--- NOTE | 2018-01-06 12:48 | HOSPPROG ---
Hospitalist Progress Note Assessment/Plan: 77 yo male with h/o DVT x2 on chronic anticoagulation admitted with symptomatic anemia 2/2 presumed GIB, no source found on EGD or c-scope. Also, acute and severe low back pain. GIB - hemodynamically stable. Hgb was ~12 03/2016. Since admission hgb 7.8 --> 6.1 --> 7.6 after 2 units prbcs. EGD neg for upper GI source of bleeding. C- scope also unrevealing. No more diarrhea, pain or dizziness. Note positive family h/o colon cancer. -cont to trend h&h (note slight downward trend today) -if h&h stabilizes, ok to resume anti-coagulation per GI -outpt capsule endoscopy to be arranged by GI Supratherapeutic INR of 3.5 on arrival - S/P 2 u FFP, vit K for reversal --> INR 1.5. H/O DVT x2 - last DVT was 4 yrs ago. -INR reversed as above -per GI, ok to resume coumadin, will need lovenox bridge at d/c Acute on chronic back pain - CT showed new, mild L4 compression fx. MRI reviewed with IR, c/w acute compression fracture at L4 -NPO for kyphoplasty in am, cont to hold anti-coagulation for procedure -pain control: tylenol, prn oxy, dilaudid Diarrhea - Resolved, GI pathogen panel neg Hypertension - anti-hypertensives held on admission as BP slightly low with GIB , BP now on the rise -resume metoprolol and ARB CAD s/p stent - resume BB, cont statin, no anti-platelets with GIB H/O lung transplant - Cont tacrolimus, everolimus, pplx meds Immunosuppression Full code Dispo - may dc later today after kypho if cleared from a mobility stand point Subjective: feels well. wants to leave hospital later today after kyphoplasty if possible. Denies obvious bleeding Objective: Vital Signs Temp Pulse Resp BP Pulse Ox 36.6 C 62 16 148/72 H 97 01/06/18 11:53 01/06/18 12:03 01/06/18 12:03 01/06/18 12:03 01/06/18 12:03 Laboratory Results 01/06/18 04:11 01/05/18 04:20 01/05/18 01/06/18 01/07/18 05:59 05:59 05:59 Intake Total 650 800 Output Total 25 Balance 625 800 PT 14.1 SEC (12.0-15.0) 01/06/18 11:20 INR 1.07 (0.83-1.16) 01/06/18 11:20 - Physical Exam Constitutional: no apparent distress, appears nourished, not in pain Cardiovascular: regular rate and rhythym, no murmur, rub, or gallop Respiratory: no respiratory distress, no rales or rhonchi, clear to auscultation Gastrointestinal: normoactive bowel sounds, soft, non-tender abdomen, no palpable masses Neurologic: AAOx3, sensation intact bilaterally ICD10 Worksheet Patient Problems: Problems Problem Status Onset Immunosuppressed status Acute Hematuria Acute Pelvic fluid collection Acute Lung transplant status, bilateral Acute
[2018-01-06] MEDS ORDERED: LIDOCAINE 1% 300 MG/30 ML SDV ONE (13:05)
[2018-01-06] MEDS ORDERED: BUPIVACAINE 0.5% 30 ML SDV ONE (13:06)
[2018-01-06] MEDS ORDERED: PROMETHAZINE HCL 25 MG/ML INJ IVP PRN (13:44)
--- NOTE | 2018-01-06 14:14 | ASMTCMCOM ---
CM Note CM Note Notes: Chart reviewed. Patient undergoing vertebroplasty this am. May dc later today. No needs identified. CM available should needs arise. Plan: Home independently. Date Signed: 01/06/2018 02:14 PM Electronically Signed By:Sandi Nicolas RN
--- NOTE | 2018-01-06 14:31 | PDRADPN ---
Radiology Procedure Note Date of Procedure: 01/06/18 Radiologist: Cooper Hernandez Anesthesia: Other (Specify) (MAC) Pre-op Diagnosis: L4 compression fracture Post-op Diagnosis: same Indication: pain control Procedure: vertebroplasty L4 Finding(s): No significant height loss. Right unilateral approach. ~5mL PMML infused. No extravasation. Inf/Abcess present in the surg proc area at time of surgery?: No EBL: Minimal Complications: none
[2018-01-06 15:10] VITALS: BP 146/73
--- NOTE | 2018-01-06 16:13 | ASMTLACE ---
LACE Length of stay for Answers: 3 days current admission Acuity / Level of Answers: Yes Care: Did the patient have an inpatient admission? Comorbidities - select Answers: Other Notes: H/O lung all that apply transplant, hypertensio n, hyperlipidemia # of Emergency department Answers: 0 visits in the last 6 months Score: 7 Date Signed: 01/06/2018 04:13 PM Electronically Signed By:Sandi Nicolas RN
--- NOTE | 2018-01-07 09:07 | GDS ---
[f rep st] DISCHARGE SUMMARY DISCHARGE DIAGNOSES: 1. Acute blood loss anemia. 2. Occult gastrointestinal bleed. Status post unrevealing colonoscopy and EGD. 3. Supratherapeutic international normalized ratio. 4. History of deep venous thrombosis. 5. L4 compression fracture, status post kyphoplasty. 6. Resolved diarrhea. 7. Hypertension. 8. History of coronary artery disease and stents. 9. History of lung transplant. CONSULTANTS: 1. Dr. Cooper Hernandez, Interventional Radiology. 2. Dr. Ding, GI [facility]. HOSPITAL COURSE AND STAY: 1. Acute blood loss anemia in the setting of occult GI bleed: The patient presented with a suprathe rapeutic INR. Warfarin was held. Vitamin K was given 5 mg IV once on the . Subsequently, his I NR went from 3.52-1.95. Dr. Acevedo was consulted from gastroenterology and ultimately underwent an EGD and colonoscopy by Dr. Ding on 01/04/2018 that did not reveal a source of bleeding. He received 2 u nits of FFP and 2 units of packed red blood cells. Throughout his hospital stay, his hemoglobin nadi r at 6.1, and was up to 7.6 on day of discharge. Prior to discharge, GI had cleared him to resume an ticoagulation and they are planning on doing an outpatient capsule endoscopy to look for a small-yeny l bleed. 2. L4 compression fracture: The patient had debilitating pain due to his compression fracture. A l umbar spine MRI was done on 01/05/2018 and subsequently a vertebroplasty was done on the by Dr. Hernandez. The patient was fairly adamant about leaving the hospital after his vertebroplasty and was dyer bsequently discharged after the procedure. PHYSICAL EXAM: On date of discharge, please refer to progress note in [facility]. DISCHARGE MEDICATIONS: Please refer to discharge medication reconciliation in [facility] for full deta ils. Below is a preliminary list. New medications on hospital discharge: Enoxaparin 80 mg subcu q.12 to be used until his INR is thera peutic. He was instructed to resume warfarin at a dose of 2.5 mg daily and follow up with his PCP re garding INR monitoring. DISCHARGE INSTRUCTIONS: The patient was discharged home on Lovenox and Coumadin. He should have an INR done on Wednesday. Lovenox should be discontinued when his INR is greater than 2. He will need follow up with GI of the [facility] for capsule endoscopy. Greater than 30 minutes was spent on the discharge of this patient. /[id number]/MODL
== END 2018-01-06 16:30 | disposition home or self-care (01) | DRG 516 ==
LOC: F1N 14:24
PROVIDERS: ADMIT Hospitalist; ATTEND Hospitalist
PROC: 0DJ08ZZ Inspection of Upper Intestinal Tract, Via Natural or Artificial Opening Endoscopic (ICD-10-PCS; 2018-01-03)
PROC: 30233L1 Transfusion of Nonautologous Fresh Plasma into Peripheral Vein, Percutaneous Approach (ICD-10-PCS; 2018-01-03)
PROC: 30233N1 Transfusion of Nonautologous Red Blood Cells into Peripheral Vein, Percutaneous Approach (ICD-10-PCS; 2018-01-03)
PROC: 0DBH8ZX Excision of Cecum, Via Natural or Artificial Opening Endoscopic, Diagnostic (ICD-10-PCS; 2018-01-04)
PROC: 0QS03ZZ Reposition Lumbar Vertebra, Percutaneous Approach (ICD-10-PCS; principal; 2018-01-05)
PROC: 0QU03JZ Supplement Lumbar Vertebra with Synthetic Substitute, Percutaneous Approach (ICD-10-PCS; principal; 2018-01-05)
DX: M48.56XA Collapsed vertebra, not elsewhere classified, lumbar region, initial encounter for fracture (principal); K92.2 Gastrointestinal hemorrhage, unspecified; D62 Acute posthemorrhagic anemia; Z94.2 Lung transplant status; R19.7 Diarrhea, unspecified; D12.0 Benign neoplasm of cecum; I10 Essential (primary) hypertension; E78.5 Hyperlipidemia, unspecified; I25.10 Atherosclerotic heart disease of native coronary artery without angina pectoris; Z95.5 Presence of coronary angioplasty implant and graft; Z86.718 Personal history of other venous thrombosis and embolism; Z79.01 Long term (current) use of anticoagulants; Z87.891 Personal history of nicotine dependence
CPT/HCPCS: 84484-PO; J0690; J1100; J1170; J2001; J2250; J2550; J2704; J3010; J3430; J7507; J7512; P9016; P9017

== ENCOUNTER → 2018-03-27 | Outpatient (CLI) | payer OTHER ==
[~2018-03-27] MED LIST: GADOBUTROL 10 ML VIAL IVP ONE
== END ==
LOC: FIMAGING 10:00
PROVIDERS: ATTEND Radiology Radiation Oncology
DX: C44.329 Squamous cell carcinoma of skin of other parts of face (principal); R59.1 Generalized enlarged lymph nodes
CPT/HCPCS: 70543; A9585; 82565-PO

== ENCOUNTER 2018-04-13 14:20 | Emergency (ER) | payer OTHER ==
--- NOTE | 2018-04-13 14:46 | EDPHY ---
H & P Smoking Status: Former smoker Time Seen by Provider: 04/13/18 14:41 HPI/ROS: HPI Fall. Left upper abdominal pain. 78-year-old male by private vehicle with his and daughter. This patient reports that a week and a half ago he was getting out of his car. He stepped backwards after leaning down to get something from the floor of his car, did not see a curb tripped and fell landing primarily on his left side. He presents to the emergency department complaining of continued pain to the left upper quadrant of his abdomen which is worse with movement. ROS: Constitutional: No fever, no chills. No weakness. No lightheadedness. Respiratory: No cough. No shortness of breath. Cardiac: No chest pain, no palpitations. Gastrointestinal: No abdominal pain, no vomiting, no diarrhea. Genitourinary: No hematuria. Musculoskeletal: No back pain. No neck pain. No myalgias or arthralgias. Skin: No rashes. Neurological: No headache. No focal weakness or altered sensation. Past medical history: Bilateral lung transplants. Social history: Former smoker. Here with his and daughter. No alcohol. Physical Exam: General Appearance: Alert, no distress. This patient is responding to questions appropriately and in full sentences. This patient appears well- hydrated and well-nourished. Head: Normocephalic atraumatic. Eyes: Pupils equal and round no pallor or injection. No lid edema, erythema or injection. Respiratory: There are no retractions, lungs are clear to auscultation anteriorly with good air movement bilaterally. No tachypnea. Gastrointestinal: Abdomen is soft with subcostal left upper quadrant abdominal tenderness on palpation mid clavicular line, no masses, bowel sounds normal. No focal tenderness at McBurney's point. No Bolden sign. Neurological: Motor sensory function is grossly intact. Cranial nerves are normal. Gait is normal. Skin: Warm and dry, no rashes. Musculoskeletal: Neck is supple and nontender. No midline cervical, thoracic, lumbar tenderness on palpation. No CVA tenderness on palpation bilaterally. Extremities are symmetrical. All joints range without pain or impingement. Psychiatric: No agitation. No depression. Database: EKG: Imaging: Procedures: Emergency department course: Triage vital signs reviewed. He is moderately hypertensive. Vital signs are otherwise normal. I-STAT will be obtained and urinalysis to evaluate for hematuria his hematocrit and renal function. Care turned over to Dr. Fernanda Orozco at 3:00 p.m.. Test results pending. CT imaging to be considered based on blood work results and reevaluation. Differential Diagnosis: The differential diagnosis on this patient includes but is not limited to abdominal wall contusion, abdominal wall muscle strain, splenic injury. This represents a partial list of diagnoses considered. These considerations are based on history, physical exam, past history, reassessment and diagnostic testing. (Ambrosio Dorsey) Constitutional: Initial Vital Signs Temperature (C) 37 C 04/13/18 14:26 Heart Rate 77 04/13/18 14:26 Respiratory Rate 16 04/13/18 14:26 Blood Pressure 146/77 H 04/13/18 14:26 O2 Sat (%) 95 04/13/18 14:26 O2 Delivery Mode Room Air Allergies/Adverse Reactions: levofloxacin [From Levaquin] Allergy (Verified 04/13/18 14:31) Sulfa (Sulfonamide Antibiotics) Allergy (Verified 04/13/18 14:31) Home Medications: Medication Instructions Recorded Alendronate Sodium 35 mg PO MARTINES 03/26/16 Azithromycin 500 mg PO MWF 03/26/16 Docusate Sodium [Colace 100 MG (*)] 200 mg PO BID 03/26/16 Everolimus [Zortress] 0.25 mg PO 03/26/16 Ferrous Sulfate [Ferrous Sulf 325 325 mg PO DAILY 03/26/16 MG (*)] Herbals/Supplements -Info Only 1 ea PO DAILY 03/26/16 Itraconazole [Sporanox 100 mg (*)] 100 mg PO 03/26/16 Magnesium Oxide [Magnesium Oxide 400 mg PO BID 03/26/16 400 mg (*)] Metoprolol Tartrate [Lopressor 25 25 mg PO BID 03/26/16 mg (*)] Pramipexole Di-HCl [Mirapex 0.25 0.25 mg PO DAILY@20 03/26/16 mg (*)] Pravastatin Sodium 20 mg PO 03/26/16 Pregabalin [Lyrica 50mg (*)] 50 mg PO TID@09,12,22 03/26/16 Pyridoxine HCl [Vitamin B-6 100 mg 50 mg PO 03/26/16 (*)] Sulfamethox/Tmp 800/160 mg 1 tab PO MWF 03/26/16 [Bactrim DS] Tacrolimus Anhydrous [Prograf 0.5 1 mg PO BID 03/26/16 MG (*)] Valsartan [Diovan (*)] 160 mg PO HS 03/26/16 predniSONE 5 mg PO DAILY 03/26/16 valGANciclovir [ValCYTE] 450 mg PO BID 03/26/16 Acetaminophen [Tylenol 325mg (*)] 650 mg PO Q4 PRN #0 tab 03/28/16 traMADol [Ultram 50 mg (*)] 25 - 50 mg PO Q6 PRN #30 tab 03/28/16 Calcium Carb W/Vit D [Calcium Carb 500 mg PO BID 01/03/18 W/Vit D 500/200 (*)] Everolimus [Zortress] 0.5 mg PO DAILY 01/04/18 Enoxaparin [Lovenox 80 MG (*)] 80 mg SQ Q12H #10 syr 01/06/18 Warfarin Sodium [Coumadin 2.5MG 2.5 mg PO DAILY16 #14 tab 01/06/18 (*)] Medical Decision Making Other Provider: I assumed care of this patient from Dr. Dorsey at 3:00 p.m.. I reviewed the patient's urinalysis, which is negative for blood. I have also reviewed the i-STAT. His BUN and creatinine are 36 and 2.5 respectively. His creatinine on March 27 of this year was 2.0. He is aware of his elevated creatinine. In further discussion with the patient and his it is agreed that CT scanning is not warranted in this setting. His hemoglobin and hematocrit are relatively stable at 34 and 11.6. I have compared them Hgb/HCT values on 03-27-18. His stable hemoglobin and hematocrit make it unlikely that he has been having ongoing splenic bleeding. His injury occurred over a week ago. He is comfortable returning home and treating the symptoms. He understands the danger signs that should prompt him to be re-evaluated immediately. He understands the risk of falling while taking anticoagulants. ( Fernanda Orozco) - Data Points Point of Care Test Results: Chemistry 04/13/18 15:26 POC Sodium 142 mEq/L mEq/L (135-145) POC Potassium 4.4 mEq/L mEq/L (3.3-5.0) POC Chloride 106 mEq/L mEq/L (97-110) POC BUN 36 mg/dL H mg/dL (7-23) POC Creatinine 2.5 mg/dL H mg/dL (0.7-1.3) POC Glucose 95 mg/dL mg/dL (70-100) ISTAT H&H 04/13/18 15:26 POC Hgb 11.6 gm/dL L gm/dL (13.7-17.5) POC Hct 34 % L % (40-51) Urine Dip Collection Date 04/13/18 Collection Time 03:14 Specific [place] (1.002-1.030) 1.025 PH (5.0-7.5) 5.5 Leukocytes (Negative) Negative Nitrites (Negative) Negative Protein (Negative) 1+ Glucose (Negative) Negative Ketones (Negative) Negative Urobilnogen (0.2-1.0 EU) 0.2 Bilirubin (Negative) Negative Blood (Negative) Negative Departure - Departure Disposition: Home, Routine, Self-Care Clinical Impression: Fall, Abdominal pain, left upper quadrant Condition: Good Instructions: Abdominal Pain (ED) Additional Instructions: I think that your abdominal pain is likely due to an abdominal wall or other hematoma, as we discussed. Referrals: Umm Luna, DO [Primary Care Provider] - As per Instructions
[2018-04-13 17:19] VITALS: BP 166/88
== END 2018-04-13 17:23 | disposition home or self-care (01) ==
LOC: CED 14:20
DX: R10.12 Left upper quadrant pain (principal); Z94.2 Lung transplant status; Z87.891 Personal history of nicotine dependence
CPT/HCPCS: 82435-PO; 82565-PO; 82947-PO; 84132-PO; 84295-PO; 84520-PO; 85014-PO

== ENCOUNTER → 2018-05-16 | Outpatient (CLI) | payer OTHER | LOC: CIMAGING 07:30 | PROVIDERS: ATTEND Family Medicine | DX: R10.9 Unspecified abdominal pain (principal) | CPT/HCPCS: 76705-PO ==

== ENCOUNTER → 2018-05-29 | Outpatient (CLI) | payer OTHER | LOC: CIMAGING 10:21 | PROVIDERS: ATTEND Family Medicine | DX: M19.042 Primary osteoarthritis, left hand (principal) | CPT/HCPCS: 73130-PO ==

== ENCOUNTER 2018-05-30 11:36 | Inpatient (IN) | payer OTHER ==
[2018-05-30] MEDS ORDERED: PHYTONADIONE 2.5 MG/2.5 ML ORAL UDL PO ONE (13:03)
--- NOTE | 2018-05-30 13:15 | EDPHY ---
H & P Stated Complaint: Skin CA Pt on Warfarin for DVT: INR 15.0 and BNP 2,000 today. Time Seen by Provider: 05/30/18 13:01 HPI/ROS: CHIEF COMPLAINT: Elevated INR HISTORY OF PRESENT ILLNESS: The patient is referred to the ED for an elevated INR of 15 today. The patient is chronically anticoagulated. He denies any hematemesis or melena. He denies any chest pain, shortness of breath or lightheadedness. The patient does have a history of skin cancer and is currently receiving treatment for this condition. REVIEW OF SYSTEMS: A comprehensive 10 point review of systems is otherwise negative aside from elements mentioned in the history of present illness. Source: Patient Exam Limitations: No limitations - Personal History Current Tetanus/Diphtheria Vaccine: Yes - Medical/Surgical History Hx Asthma: No Hx Chronic Respiratory Disease: No Hx Diabetes: No Hx Cardiac Disease: Yes Hx Renal Disease: No Hx Cirrhosis: No Hx Alcoholism: No Hx HIV/AIDS: No Hx Splenectomy or Spleen Trauma: No Other PMH: hypertension, hyperlipidemia, dvt, RLS, bilat lung transplant, prostatectomy cardiac stents, squamous cell with radiation treatments. 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 Musculoskeletal: Neck is supple nontender Extremities: symmetrical, full range of motion Psychiatric: Patient is oriented X 3, there is no agitation Constitutional: Initial Vital Signs Temperature (C) 36.5 C 05/30/18 11:41 Heart Rate 81 05/30/18 11:41 Respiratory Rate 16 05/30/18 11:41 Blood Pressure 155/73 H 05/30/18 11:41 O2 Sat (%) 95 05/30/18 11:41 O2 Delivery Mode Room Air Allergies/Adverse Reactions: levofloxacin [From Levaquin] Allergy (Verified 05/30/18 11:41) Sulfa (Sulfonamide Antibiotics) Allergy (Verified 05/30/18 11:41) Home Medications: Medication Instructions Recorded Alendronate Sodium 35 mg PO 03/26/16 Azithromycin 500 mg PO [facility] 03/26/16 Docusate Sodium [Colace 100 MG (*)] 200 mg PO BID 03/26/16 Everolimus [Zortress] 0.25 mg PO 03/26/16 Ferrous Sulfate [Ferrous Sulf 325 325 mg PO DAILY 03/26/16 MG (*)] Herbals/Supplements -Info Only 1 ea PO DAILY 03/26/16 Itraconazole [Sporanox 100 mg (*)] 100 mg PO HS 03/26/16 Magnesium Oxide [Magnesium Oxide 400 mg PO BID 03/26/16 400 mg (*)] Metoprolol Tartrate [Lopressor 25 25 mg PO BID 03/26/16 mg (*)] Pramipexole Di-HCl [Mirapex 0.25 0.25 mg PO DAILY@20 03/26/16 mg (*)] Pravastatin Sodium 20 mg PO 03/26/16 Pregabalin [Lyrica 50mg (*)] 50 mg PO TID@,,03/26/16 Pyridoxine HCl [Vitamin B-6 100 mg 50 mg PO 03/26/16 (*)] Sulfamethox/Tmp 800/160 mg 1 tab PO [facility] 03/26/16 [Bactrim DS] Tacrolimus Anhydrous [Prograf 0.5 1 mg PO BID 03/26/16 MG (*)] Valsartan [Diovan (*)] 160 mg PO 03/26/16 predniSONE 5 mg PO DAILY 03/26/16 valGANciclovir [ValCYTE] 450 mg PO BID 03/26/16 Acetaminophen [Tylenol 325mg (*)] 650 mg PO Q4 PRN #0 tab 03/28/16 traMADol [Ultram 50 mg (*)] 25 - 50 mg PO Q6 PRN #30 tab 03/28/16 Calcium Carb W/Vit D [Calcium Carb 500 mg PO BID 01/03/18 W/Vit D 500/200 (*)] Everolimus [Zortress] 0.5 mg PO DAILY 01/04/18 Enoxaparin [Lovenox 80 MG (*)] 80 mg SQ Q12H #10 syr 01/06/18 Warfarin Sodium [Coumadin 2.5MG 2.5 mg PO DAILY16 #14 tab 01/06/18 (*)] Medical Decision Making ED Course/Re-evaluation: The patient did receive oral vitamin K in the emergency department. He has been typed and crossed for 2 units. The patient is hemodynamically stable. His hematocrit is 26 down from a baseline 31. The patient has received FFP. In the setting of his acute anemia, mildly melanotic stool and markedly elevated INR he will be admitted to the hospital for observation. Differential Diagnosis: Differential diagnosis considered includes critical anemia, hypovolemic shock, medication overdose Critical Care Time: Critical care time exclusive of procedures and exclusive of the PA's time was 35 minutes, performed by myself, Ayush Castillo MD. The patient presents to the ED with a markedly elevated INR and evidence of active bleeding. The patient required reversal in the emergency department including vitamin K and FFP. The patient was typed and crossed for 2 units of blood. The patient will be admitted to the hospital for observation this evening. Consultation was made with Dr. Krause from the hospitalist service who will admit the patient. - Data Points Laboratory Results: Laboratory Results 05/30/18 13:30 05/30/18 13:50 05/30/18 05/30/18 13:50 13:30 WBC 5.16 10^3/uL 10^3/uL (3.80-9.50) RBC 2.86 10^6/uL L 10^6/uL (4.40-6.38) Hgb 8.6 g/dL L g/dL (13.7-17.5) Hct 26.1 % L % (40.0-51.0) MCV 91.3 fL fL (81.5-99.8) MCH 30.1 pg pg (27.9-34.1) MCHC 33.0 g/dL g/dL (32.4-36.7) RDW 15.0 % % (11.5-15.2) Plt Count 184 10^3/uL 10^3/uL (150-400) MPV 9.6 fL fL (8.7-11.7) Neut % (Auto) 75.0 % H % (39.3-74.2) Lymph % (Auto) 18.0 % % (15.0-45.0) Mcclain % (Auto) 5.8 % % (4.5-13.0) Eos % (Auto) 0.6 % % (0.6-7.6) Baso % (Auto) 0.2 % L % (0.3-1.7) Nucleat RBC Rel Count 0.0 % % (0.0-0.2) Absolute Neuts (auto) 3.87 10^3/uL 10^3/uL (1.70-6.50) Absolute Lymphs (auto) 0.93 10^3/uL L 10^3/uL (1.00-3.00) Absolute Monos (auto) 0.30 10^3/uL 10^3/uL (0.30-0.80) Absolute Eos (auto) 0.03 10^3/uL 10^3/uL (0.03-0.40) Absolute Basos (auto) 0.01 10^3/uL L 10^3/uL (0.02-0.10) Absolute Nucleated RBC 0.00 10^3/uL 10^3/uL (0-0.01) Immature Gran % 0.4 % % (0.0-1.1) Immature Gran # 0.02 10^3/uL 10^3/uL (0.00-0.10) Sodium 140 mEq/L mEq/L (135-145) Potassium 4.8 mEq/L mEq/L (3.3-5.0) Chloride 111 mEq/L H mEq/L (97-110) Carbon Dioxide 23 mEq/l mEq/l (22-31) Anion Gap 6 mEq/L mEq/L (6-14) BUN 69 mg/dL H mg/dL (7-23) Creatinine 2.4 mg/dL H mg/dL (0.7-1.3) Estimated GFR 26 Glucose 91 mg/dL mg/dL (70-100) Calcium 9.1 mg/dL mg/dL (8.5-10.4) Medications Given: Discontinued Medications Phytonadione (Vitamin K) 5 mg PO EDNOW ONE Stop: 05/30/18 13:04 Last Admin: 05/30/18 13:48 Dose: 5 mg Departure - Departure Disposition: [facility] Acute Clinical Impression: Elevated INR, Anemia, GI bleed, Chronic renal failure Condition: Good
[2018-05-30 13:53] LABS: PLATELET COUNT 184 10^3/uL (150-400)
[2018-05-30] MEDS ORDERED: ONDANSETRON 4 MG/2 ML VIAL IVP PRN (14:32)
[2018-05-30] MEDS ORDERED: ONDANSETRON DISINTEGRATING 4 MG TAB PO PRN (14:32)
[2018-05-30] MEDS ORDERED: ACETAMINOPHEN 325 MG TAB PO PRN ×2 (14:32→18:35)
--- NOTE | 2018-05-30 16:15 | PDGENHP ---
<Nyasia Cohen - Last Filed: 05/30/18 17:08> History and Physical - Chief Complaint Elevated INR - History of Present Illness 78 y/o male with history of bilateral lung transplant, DVT x 2 (on chronic warfarin), and squamous cell carcinoma presents with an elevated INR of 15.13. Denies SOB, chest pains, palpitations, dizziness, syncope, mechanical injury, melena, hematuria. Past Medical/Surgical History 1. Bilateral lung transplant (2010; d/t COPD) -Premature by one month, father was a smoker, and pt smoked "a couple of packs a day" for 20 years until quitting at age 35. He does not smoke now 2. DVT x 2 (2012) 3. Right-sided squamous cell carcinoma (completed 4 weeks worth of radiation 3 weeks ago. It did not cure all the carcinoma and it is now spreading to his nose per pt; noted facial lesions) 4. HTN 5. Prostatectomy 6. Chronic back pain 7. Restless leg syndrome 8. CAD (stent in 2001) 9. HAL on CPAP Family History 1. Colon Cancer Vital signs: 155/73 81 16 Respirations 95% RA 36.5 degree History Information - Allergies/Home Medication List Allergies/Adverse Reactions: levofloxacin [From Levaquin] Allergy (Verified 05/30/18 11:41) Sulfa (Sulfonamide Antibiotics) Allergy (Verified 05/30/18 11:41) Home Medications: Alendronate Sodium 35 mg PO MARTINES 03/26/16 [Last Taken 05/25/18] Azithromycin 500 mg PO MWF 03/26/16 [Last Taken 05/30/18] Docusate Sodium [Colace 100 MG (*)] 200 mg PO BID 03/26/16 [Last Taken 05/30/18 09:00] Everolimus [Zortress] 0.25 mg PO DAILY 03/26/16 [Last Taken 05/30/18] Ferrous Sulfate [Ferrous Sulf 325 MG (*)] 325 mg PO DAILY 03/26/16 [Last Taken 05/30/18] Herbals/Supplements -Info Only 1 ea PO DAILY 03/26/16 [Last Taken 05/30/18] Itraconazole [Sporanox 100 mg (*)] 100 mg PO HS 03/26/16 [Last Taken 05/29/18] Magnesium Oxide [Magnesium Oxide 400 mg (*)] 400 mg PO BID 03/26/16 [Last Taken 05/30/18 09:00] Metoprolol Tartrate [Lopressor 25 mg (*)] 25 mg PO BID 03/26/16 [Last Taken 04/08 09:00] Pravastatin Sodium 20 mg PO HS 03/26/16 [Last Taken 05/29/18] Pyridoxine HCl [Vitamin B-6 100 mg (*)] 50 mg PO HS 03/26/16 [Last Taken ] Sulfamethox/Tmp 800/160 mg [Bactrim DS] 1 tab PO MWF 03/26/16 [Last Taken ] Tacrolimus Anhydrous [Prograf 0.5 MG (*)] 1 mg PO BID 03/26/16 [Last Taken 05/30 09:00] Valsartan [Diovan (*)] 160 mg PO HS 03/26/16 [Last Taken 05/29/18] predniSONE 5 mg PO DAILY 03/26/16 [Last Taken 05/30/18] valGANciclovir [ValCYTE] 450 mg PO BID 03/26/16 [Last Taken 05/30/18 09:00] Calcium Carb W/Vit D [Calcium Carb W/Vit D 500/200 (*)] 500 mg PO BID 01/03/18 [ Last Taken 05/30/18 09:00] Everolimus [Zortress] 0.5 mg PO HS 01/04/18 [Last Taken 05/29/18] Ferrous Gluconate 240 mg PO BID 05/30/18 [Last Taken 05/30/18 09:00] Pramipexole Di-HCl [Mirapex] 0.5 mg PO HS 05/30/18 [Last Taken 05/29/18] Pregabalin [Lyrica 75mg (*)] 75 mg PO BID 05/30/18 [Last Taken 05/30/18 09:00] Warfarin Sodium [Coumadin 2.5MG (*)] 1.25 mg PO MOTUWEFRSA 05/30/18 [Last Taken 05/28/18] Warfarin Sodium [Coumadin 2.5MG (*)] 2.5 mg PO SUTH 05/30/18 [Last Taken ] traMADol [Ultram 50 mg (*)] 50 mg PO Q6 PRN 05/30/18 [Last Taken 05/30/18 09:00] I have personally reviewed and updated: family history, medical history, social history, surgical history Past Medical History: See HPI list - Past Medical History coronary artery disease, DVT, GERD, hypertension, hyperlipidemia Additional medical history: CAD - stent 2001. HAL on cpap. RLS - Surgical History Additional surgical history: Lung transplant 2010 for COPD. prostatectomy 2015. Moh's surgery for BCC and SCC. Shmuel fundoplication 2012 - Family History Additional family history: Dad age 49 colon cancer - Social History Smoking Status: Former smoker Alcohol Use: Rarely Drug Use: None Additional social history: to [place], spouse. he is retired revenue accountant Review of Systems Review of Systems: ROS: 10pt was reviewed & negative except for what was stated in HPI & below Constitutional: Reports: no symptoms (Reports in December 2017 when he had elevated INR and H/H decreased, he felt weak and dizzy but this time - he feels "fine.") EENMT: Reports: no symptoms Cardiac: Reports: no symptoms Respiratory: Reports: no symptoms Gastrointestinal: Reports: no symptoms Genitourinary: Reports: no symptoms Muscolosketal: Reports: no symptoms Skin: Reports: lesions (Right side of face) Neurological: Reports: no symptoms Hematologic/Lymphatic: Reports: no symptoms Immunologic/Allergy: Reports: other (See allergy list) Physical Exam Physical Exam: Lab data reviewed INR: 15.13 H/H: 8.6/26.1 BMP: pending Temp Pulse Resp BP Pulse Ox 36.5 C 81 16 155/73 H 95 05/30/18 11:41 05/30/18 11:41 05/30/18 11:41 05/30/18 11:41 05/30/18 11:41 Constitutional: no apparent distress, appears nourished, not in pain Eyes: PERRL, anicteric sclera, EOMI Ears, Nose, Mouth, Throat: moist mucous membranes, hearing normal, ears appear normal, no oral mucosal ulcers Cardiovascular: regular rate and rhythym, other (Murmur, no rub or gallop. BLE 2+ pitting edema) Peripheral Pulses: 1+: dorsalis-pedis (R), dorsalis-pedis (L) Respiratory: no respiratory distress, no rales or rhonchi, clear to auscultation Gastrointestinal: soft, non-tender abdomen, no palpable masses, other ( Hypoactive bowel sounds) Genitourinary: no bladder fullness, no bladder tenderness Skin: other (Right side facial lesions related to his squamous cell CA) Musculoskeletal: full muscle strength, no muscle tenderness, normal joint ROM, no joint effusions Neurologic: AAOx3, sensation intact bilaterally, CN II-XII Intact Psychiatric: interacting appropriately, not anxious, not encephalopathic, thought process linear Lymph, Heme, Immunologic: no cervical LAD, no supraclavicular LAD Lab Data & Imaging Review 05/30/18 13:30 05/30/18 13:50 WBC 5.16 10^3/uL (3.80-9.50) 05/30/18 13:30 RBC 2.86 10^6/uL (4.40-6.38) L 05/30/18 13:30 Hgb 8.6 g/dL (13.7-17.5) L 05/30/18 13:30 Hct 26.1 % (40.0-51.0) L 05/30/18 13:30 MCV 91.3 fL (81.5-99.8) 05/30/18 13:30 MCH 30.1 pg (27.9-34.1) 05/30/18 13:30 MCHC 33.0 g/dL (32.4-36.7) 05/30/18 13:30 RDW 15.0 % (11.5-15.2) 05/30/18 13:30 Plt Count 184 10^3/uL (150-400) 05/30/18 13:30 MPV 9.6 fL (8.7-11.7) 05/30/18 13:30 Neut % (Auto) 75.0 % (39.3-74.2) H 05/30/18 13:30 Lymph % (Auto) 18.0 % (15.0-45.0) 05/30/18 13:30 [place] % (Auto) 5.8 % (4.5-13.0) 05/30/18 13:30 Eos % (Auto) 0.6 % (0.6-7.6) 05/30/18 13:30 Baso % (Auto) 0.2 % (0.3-1.7) L 05/30/18 13:30 Nucleat RBC Rel Count 0.0 % (0.0-0.2) 05/30/18 13:30 Absolute Neuts (auto) 3.87 10^3/uL (1.70-6.50) 05/30/18 13:30 Absolute Lymphs (auto) 0.93 10^3/uL (1.00-3.00) L 05/30/18 13:30 Absolute Monos (auto) 0.30 10^3/uL (0.30-0.80) 05/30/18 13:30 Absolute Eos (auto) 0.03 10^3/uL (0.03-0.40) 05/30/18 13:30 Absolute Basos (auto) 0.01 10^3/uL (0.02-0.10) L 05/30/18 13:30 Absolute Nucleated RBC 0.00 10^3/uL (0-0.01) 05/30/18 13:30 Immature Gran % 0.4 % (0.0-1.1) 05/30/18 13:30 Immature Gran # 0.02 10^3/uL (0.00-0.10) 05/30/18 13:30 Patient ABO/Rh A POSITIVE 05/30/18 15:20 Antibody Screen NEGATIVE 05/30/18 15:20 Crossmatch IS Only See Detail 05/30/18 15:20 Assessment & Plan Plan: 78 y/o male with history of bilateral lung transplant, DVT x 2 (on chronic warfarin), and squamous cell carcinoma presents with an elevated INR of 15.13. Asymptomatic. 2 days prior, BNP was 2049. 1. Elevated INR: on chronic warfarin 2.5 mg Saturday and + 1.25 mg // Sat/Sat/Sat. Vitamin K and FFP given in ED -Check INR tomorrow -Monitor closely 2. Anemia: H/H 8.6/26.1. Asymptomatic. In December 2017, similar event and was scoped endo/colon and results were negative for active bleeding. -Hemoccult sample needs collecting -PRBC 2 units ordered 3. Elevated BNP (2049) on 05/28: Presents with BLE 2+ pitting. Murmur present. No JVD. -Check BNP -Echo -UA, FeNa (creatinine 2.4) Diet: Regular VTE ppx: SCDs Code: Full Dispo: Admit to inpatient <Shanti Krause - Last Filed: 05/30/18 18:46> History and Physical - History of Present Illness Review of Systems Review of Systems: Physical Exam Physical Exam: Temp Pulse Resp BP Pulse Ox 36.5 C 74 18 168/88 H 94 05/30/18 11:41 05/30/18 18:36 05/30/18 18:36 05/30/18 18:36 05/30/18 18:36 Lab Data & Imaging Review 05/30/18 13:30 05/30/18 13:50 WBC 5.16 10^3/uL (3.80-9.50) 05/30/18 13:30 RBC 2.86 10^6/uL (4.40-6.38) L 05/30/18 13:30 Hgb 8.6 g/dL (13.7-17.5) L 05/30/18 13:30 Hct 26.1 % (40.0-51.0) L 05/30/18 13:30 MCV 91.3 fL (81.5-99.8) 05/30/18 13:30 MCH 30.1 pg (27.9-34.1) 05/30/18 13:30 MCHC 33.0 g/dL (32.4-36.7) 05/30/18 13:30 RDW 15.0 % (11.5-15.2) 05/30/18 13:30 Plt Count 184 10^3/uL (150-400) 05/30/18 13:30 MPV 9.6 fL (8.7-11.7) 05/30/18 13:30 Neut % (Auto) 75.0 % (39.3-74.2) H 05/30/18 13:30 Lymph % (Auto) 18.0 % (15.0-45.0) 05/30/18 13:30 [place] % (Auto) 5.8 % (4.5-13.0) 05/30/18 13:30 Eos % (Auto) 0.6 % (0.6-7.6) 05/30/18 13:30 Baso % (Auto) 0.2 % (0.3-1.7) L 05/30/18 13:30 Nucleat RBC Rel Count 0.0 % (0.0-0.2) 05/30/18 13:30 Absolute Neuts (auto) 3.87 10^3/uL (1.70-6.50) 05/30/18 13:30 Absolute Lymphs (auto) 0.93 10^3/uL (1.00-3.00) L 05/30/18 13:30 Absolute Monos (auto) 0.30 10^3/uL (0.30-0.80) 05/30/18 13:30 Absolute Eos (auto) 0.03 10^3/uL (0.03-0.40) 05/30/18 13:30 Absolute Basos (auto) 0.01 10^3/uL (0.02-0.10) L 05/30/18 13:30 Absolute Nucleated RBC 0.00 10^3/uL (0-0.01) 05/30/18 13:30 Immature Gran % 0.4 % (0.0-1.1) 05/30/18 13:30 Immature Gran # 0.02 10^3/uL (0.00-0.10) 05/30/18 13:30 Sodium 140 mEq/L (135-145) 05/30/18 13:50 Potassium 4.8 mEq/L (3.3-5.0) 05/30/18 13:50 Chloride 111 mEq/L (97-110) H 05/30/18 13:50 Carbon Dioxide 23 mEq/l (22-31) 05/30/18 13:50 Anion Gap 6 mEq/L (6-14) 05/30/18 13:50 BUN 69 mg/dL (7-23) H 05/30/18 13:50 Creatinine 2.4 mg/dL (0.7-1.3) H 05/30/18 13:50 Estimated GFR 26 05/30/18 13:50 Glucose 91 mg/dL (70-100) 05/30/18 13:50 Calcium 9.1 mg/dL (8.5-10.4) 05/30/18 13:50 NT-Pro-B Natriuret Pep 1250 pg/mL (0-450) H 05/30/18 13:50 Stool Occult Bld Scrn POSITIVE (NEGATIVE) H 05/30/18 13:00 Patient ABO/Rh A POSITIVE 05/30/18 15:20 Antibody Screen NEGATIVE 05/30/18 15:20 Crossmatch IS Only See Detail 05/30/18 15:20 Assessment & Plan Assessment: Anemia (Acute) Chronic renal failure (Acute) Elevated INR (Acute) GI bleed (Acute) I evaluated and examined patient with Nyasia Cohen NP. I agree with assessment and plan except as stated below. S: INR check 15. Denied overt bleeding. No CP, SOB. Endorsed LE edema worse over past 2 months O : BP 155/73, HR 80. RR: 16, 95% RA Gen: NAD HEENT: SCC lesions right side of face, scabbed CV: RRR. +2-3 pitting edema to thighs Lungs: CTA : no eldridge Musk: moves all 4 extrem Neuro: 2-12 intact A&P 1. Supratherapeutic INR: 15. Denies overt bleed. h/o GIB in December with elevated INR. Transfused blood in ER and dosed Vit K. Will need frequent checks since on chronic abx for transplant 2. h/o lung transplant: home meds 3. LE edema: BNP >2000 this week. Suspect related to HAL (cannot tolerated CPAP with SCC facial lesions) Echo pending 4. GONZALES: UA, lytes pending 5. h/o left leg DVT x2: lifelong anticoagulation 6. CAD: s/p stents. BB, statin 7. ho L4 compression Fx: s/p kyphoplasty 8. HTN: resume home meds Observation admission for repeat INR, echo
[2018-05-30] MEDS ORDERED: PRAMIPEXOLE 0.25 MG TAB PO ONE ×2 (17:16→17:21)
[2018-05-30] MEDS ORDERED: traMADol 50 MG TAB PO PRN (18:35)
[2018-05-30] MEDS: CALCIUM CARB W/VIT D 500 MG TAB PO SCH (21:56)
[2018-05-30] MEDS: DOCUSATE SODIUM 100 MG CAP PO SCH (21:57)
[2018-05-30] MEDS: METOPROLOL TARTRATE 25 MG TAB PO SCH (21:57)
[2018-05-30] MEDS: MAGNESIUM OXIDE 400 MG TAB PO SCH (21:57)
[2018-05-30] MEDS: TACROLIMUS ANHYDROUS 0.5 MG CAP PO SCH (22:09)
[2018-05-30] MEDS: PRAVASTATIN SODIUM 20 MG TAB PO SCH (22:10)
[2018-05-30] MEDS: PREGABALIN 75 MG CAP PO SCH (22:10)
[2018-05-30] MEDS: Everolimus [Zortress] 0.5 MG PO SCH (22:14)
[2018-05-30] MEDS: FERROUS GLUCONATE 240 MG PO SCH (22:15)
[2018-05-30] MEDS: ITRACONAZOLE 100 MG CAP PO SCH (22:23)
[2018-05-31 06:51] LABS: INR 6.56 (0.83-1.16); PROTIME(PATIENT) 56.3 SEC (12.0-15.0)
--- NOTE | 2018-05-31 08:04 | ASMTCMCOM ---
CM Note CM Note Notes: Reviewed chart for dispo planning purposes. Patient admitted elevated INR, Anemia. He has a hx of Squamous Cell Carcinoma and bilateral lung transplant. He lives at home with . Patient was here in December and discharged home independently. No therapy warranted at this time. D/C needs tbd - will await medical recommendations. CM to follow. Plan: TBD Date Signed: 05/31/2018 08:04 AM Electronically Signed By:Janny Wallace RN
--- NOTE | 2018-05-31 08:45 | HOSPPROG ---
Hospitalist Progress Note Assessment/Plan: 78 y/o male with history of bilateral lung transplant, DVT x 2 (on chronic warfarin), and squamous cell carcinoma R face presents with an elevated INR of 15.13 and abnl creatinine 1. Elevated INR: on chronic warfarin 2.5 mg Saturday and + 1.25 mg // Sat/Sat/Sat. Vitamin K and FFP given in ED -no evidence of active bleeding -hemoccult with 1 test positive (had extensive GI workup earlier this yr when elev INR) -will monitor hgb closely -no further vit K at this time, will watch trend as creat improves 2. Anemia: H/H 8.6/26.1 at admission. Asymptomatic. In December 2017, similar event, endo/colon and results were negative for active bleeding. -Hemoccult + again -PRBC 1 unit already transfused -watch for stability -GI consult here vs as an outpt 3. Elevated BNP (2049) on 05/28: Presents with BLE 2+ pitting. Murmur present. No JVD. -Echo done, report pending -elevation difficult to interpret with abnl creat 4. Hx lung transplant -has appt at [facility] Pulm/transplant team soon to review care 5. HAL -not wearing CPAP bc of face SCC -OK O2 NC for now (can discuss with pulm at FU) 6. GONZALES -creat 2.4 at admission -gentle hydration -advised lab draws of creat and PT for next several weeks to watch closely/ ensure stability -avoid nephrotoxic meds Diet: Regular VTE ppx: SCDs (helping with edema) Code: Full PCP Dr Luna [facility] Dispo: >2 mdts bc of very high INR, GONZALES. High risk for bleed, anemia, monitor for GI bleed Subjective: and daughter in room. Has been feeling well, no recent illness/ fevers/SOB/v/d. Denies taking OTC meds. Denies changing coumadin dose, but does have a new bottle. Did have to change from fingerprick to lab draw bc of strip recall. Had been noticing leg swelling- wasn't sure of cause. Much better today. Objective: Vital Signs Temp Pulse Resp BP Pulse Ox 97.7 F 62 18 142/78 H 85 L 05/31/18 06:22 05/31/18 07:00 05/31/18 06:22 05/31/18 06:22 05/31/18 07:00 Laboratory Results 05/31/18 05:04 05/29/18 05/30/18 05/31/18 11:59 11:59 11:59 Intake Total 1700 Output Total 4400 Balance -2700 PT 56.3 SEC (12.0-15.0) H 05/31/18 05:04 INR 6.56 (0.83-1.16) H* 05/31/18 05:04 - Time Spent With Patient Time Spent with Patient: greater than 35 minutes Time Spent with Patient: Greater than 35 minutes spent on this patients care, greater than 50% of time spent counseling, educating, and coordinating care regarding the above mentioned plan. - Physical Exam Constitutional: no apparent distress, appears nourished, not in pain Eyes: PERRL, anicteric sclera Ears, Nose, Mouth, Throat: moist mucous membranes, hearing normal Cardiovascular: regular rate and rhythym, systolic murmur Respiratory: no respiratory distress, no rales or rhonchi, clear to auscultation Gastrointestinal: normoactive bowel sounds, soft, non-tender abdomen, no palpable masses Skin: warm, normal color Psychiatric: interacting appropriately, not anxious, not encephalopathic, thought process linear ICD10 Worksheet Patient Problems: Problems Problem Status Onset Anemia Acute Chronic renal failure Acute Elevated INR Acute GI bleed Acute Hematuria Acute Immunosuppressed status Acute Lung transplant status, bilateral Acute Pelvic fluid collection Acute
[2018-05-31] MEDS ORDERED: Herbals/Supplements -Info Only PO SCH (09:00)
[2018-05-31] MEDS: TACROLIMUS ANHYDROUS 0.5 MG CAP PO SCH ×2 (09:44→19:57)
[2018-05-31] MEDS: PREGABALIN 75 MG CAP PO SCH ×2 (09:46→19:58)
[2018-05-31] MEDS: predniSONE 5 MG TAB PO SCH (09:46)
[2018-05-31] MEDS: FERROUS SULFATE 325 MG TAB PO SCH (09:46)
[2018-05-31] MEDS: MAGNESIUM OXIDE 400 MG TAB PO SCH ×2 (09:46→20:01)
[2018-05-31] MEDS: DOCUSATE SODIUM 100 MG CAP PO SCH ×2 (09:47→20:01)
[2018-05-31] MEDS: CALCIUM CARB W/VIT D 500 MG TAB PO SCH ×2 (09:47→20:00)
[2018-05-31] MEDS: METOPROLOL TARTRATE 25 MG TAB PO SCH ×2 (09:50→20:00)
[2018-05-31] MEDS: EVEROLIMUS 0.25 MG PO SCH (12:18)
[2018-05-31] MEDS: FERROUS GLUCONATE 240 MG PO SCH ×2 (12:18→20:02)
--- NOTE | 2018-05-31 15:32 | ECHO ---
[email or web address] [address] Main: [phone] Fax: Transthoracic Echocardiogram Name: MELITA ANNA MR#: [id number] Study Date: 05/31/2018 Study Time: 08:02 AM Date of : 1940 Age: 78 year(s) Height: 185.4 cm (73 in.) Weight: 83.92 kg (185 lb.) BSA: 2.08 m2 Gender: Male Examination: Echo Indication: Murmur/BLE edema/hx bilateral lung transplant Image Quality: Contrast: Requested by: Nyasia Cohen BP: / Heart Rate: Rhythm: Indication: Murmur/BLE edema/hx bilateral lung transplant Procedure Staff Contract Attorney: Grecia Mark [facility] Reading Physician: Chaparro Quintana MD Requesting Provider: Conclusions: Normal size left ventricle. Mild concentric LV hypertrophy. Normal global systolic LV function. The ejection fraction is estimated to be 65-70 %. No regional wall motion abnormality. Grade 1 diastolic dysfunction (abnormal relaxation). The left atrium is mildly dilated. The right atrium is normal in size. Trivial tricuspid valve regurgitation. No pericardial effusion. Measurements: Chambers Valvular Assessment AV/MV Valvular Assessment TV/PV Normal Normal Normal Name Value Range Name Value Range Name Value Range Ao Sylvie (MM): 3.9 cm (2.2 cm-3.7 AV Vmax: 1.70 m/s (1 m/s-1.7 cm) m/s) IVSd (2D): 1.2 cm (0.6 cm-1.1 AV meanP mmHg ( - ) cm) MV E Vmax: 0.81 m/s ( - ) LVDd (2D): 5.4 cm (4.2 cm-5.9 MV A Vmax: 0.81 m/s ( - ) cm) MV E/A: 1.00 ( - ) LVDs (2D): 3.5 cm (2.1 cm-4 cm) LVPWd (2D): 0.8 cm (0.6 cm-1 cm) LVEF (BP): 76 % (>=55 %) EF Range: 65-70 % Continued Measurements: Patient: MELITA ANNA Study Date: 05/31/2018 Page 1 of 2 08:02 AM Chambers Valvular Assessment AV/MV Name Value Name Value LADs: 4.7 cm MV E' Septal: 0.07 m/s LADs Lon.2 cm MV E/E' Septal: 11.60 LA Area: 26.2 cm2 MV E/E' Lateral: 8.70 LA Volume: 87 ml LA Volume Index: 41.8 ml/m2 Findings: Left Ventricle: Normal size left ventricle. Mild concentric LV hypertrophy. Normal global systolic LV function. The ejection fraction is estimated to be 65-70 %. No regional wall motion abnormality. Grade 1 diastolic dysfunction (abnormal relaxation). Right Ventricle: Normal size right ventricle. Left Atrium: The left atrium is mildly dilated. Right Atrium: The right atrium is normal in size. Mitral Valve: Mild mitral annular calcification. There is mild thickening of the mitral valve leaflets. Mild mitral valve regurgitation is present. Aortic Valve: The aortic valve is normal in appearance and function. Trivial aortic valve regurgitation. No aortic valve stenosis is present. Tricuspid Valve: The tricuspid valve is normal in appearance and function. Trivial tricuspid valve regurgitation. Pulmonic Valve: The pulmonic valve is normal in appearance and function. Trivial pulmonic valve regurgitation. Aorta: The aorta is normal. Pericardium: No pericardial effusion. (No Signature Object) Patient: MELITA ANNA Study Date: 05/31/2018 Page 2 of 2 08:02 AM [id number]
--- NOTE | 2018-05-31 17:11 | PDMN ---
Medical Necessity Medical necessity: [facility] Hematology GR yo presents with elevated INR of 15.13 w/ hx bilateral lung transplant, DVT x 2 (on chronic warfarin), and squamous cell carcinoma, vitamin K and FFP started, pt is anemic w/ H/H 8.6/26.1 , BNP 2050, + stool occult bld,. Change to IP status 05/31/18 @ 1636 per MD order. Pt meets IP status for severe over-anticoagulation or high-risk situation as indicated by 1 or more of the following: INR 5 or greater and rapid reversal needed.
[2018-05-31] MEDS: ITRACONAZOLE 100 MG CAP PO SCH (19:58)
[2018-05-31] MEDS: Everolimus [Zortress] 0.5 MG PO SCH (19:58)
[2018-05-31] MEDS: PRAVASTATIN SODIUM 20 MG TAB PO SCH (20:01)
[2018-05-31] MEDS ORDERED: PRAMIPEXOLE 0.25 MG TAB PO SCH (21:00)
[2018-05-31] MEDS ORDERED: PYRIDOXINE HCL 100 MG TAB PO SCH (21:00)
[2018-06-01 05:21] LABS: PLATELET COUNT 159 10^3/uL (150-400)
[2018-06-01 07:06] LABS: INR 6.51 (0.83-1.16)
[2018-06-01] MEDS ORDERED: ALENDRONATE SODIUM 70 MG TAB PO SCH (07:30)
[2018-06-01 07:44] VITALS: BP 144/74
[2018-06-01] MEDS: FERROUS GLUCONATE 240 MG PO SCH (08:15)
[2018-06-01] MEDS: EVEROLIMUS 0.25 MG PO SCH (08:15)
[2018-06-01] MEDS: TACROLIMUS ANHYDROUS 0.5 MG CAP PO SCH (08:16)
[2018-06-01] MEDS: DOCUSATE SODIUM 100 MG CAP PO SCH (08:16)
[2018-06-01] MEDS: predniSONE 5 MG TAB PO SCH (08:16)
[2018-06-01] MEDS: FERROUS SULFATE 325 MG TAB PO SCH (08:17)
[2018-06-01] MEDS: MAGNESIUM OXIDE 400 MG TAB PO SCH (08:17)
[2018-06-01] MEDS: METOPROLOL TARTRATE 25 MG TAB PO SCH (08:17)
[2018-06-01] MEDS: CALCIUM CARB W/VIT D 500 MG TAB PO SCH (08:17)
[2018-06-01] MEDS: PREGABALIN 75 MG CAP PO SCH (08:19)
--- NOTE | 2018-06-01 13:32 | PDHOMEO2F ---
Home Oxygen Face to Face Home Orders: I certify that a physician or a nurse practitioner or physician's field administrative assistant has had a [id number] encounter with this patient on the date of this order due to the diagnosis listed, which relates to the primary reason the patient requires home oxygen. Alternative treatments have been tried, or considered, and deemed ineffective. It is anticipated that supplemental oxygen will result in improvement with treatment. Home oxygen qualifying diagnosis: obstructive sleep apnea, nocturnal hypoxia SpO2 on room air (%): 72% when sleeping Frequency of home oxygen needed: during sleep Home oxygen liters per minute: 2L Home oxygen delivery device: nasal cannula Concentrator: Yes E-tanks for mobility and back up: No I certify that, based on these findings, the home oxygen is medically necessary for this patient for the following length of time. Length of time home oxygen needed: 99 years Home Oxygen Comment: unable to tolerate CPAP currently because of cancer on R cheek
[2018-06-01 14:45] LABS: INR 6.04 (0.83-1.16); PROTIME(PATIENT) 52.9 SEC (12.0-15.0)
--- NOTE | 2018-06-01 14:52 | ASMTCMCOM ---
CM Note CM Note Notes: Maxim/ , pt can go home today, lives with . No therapies ordered, pt is independent, CM available for any changes. DC Plan: Independent Date Signed: 06/01/2018 02:51 PM Electronically Signed By:Bailey Vazquez RN
--- NOTE | 2018-06-01 14:54 | ASMTLACE ---
[facility]NA[facility] Length of stay for Answers: 1 day current admission Acuity / Level of Answers: Yes Care: Did the patient have an inpatient admission? Comorbidities - select Answers: Coronary Artery Disease all that apply Opioid dependence / Chronic pain Other Notes: [facility] Lung Transplant, DVT, HTN, C arc inoma # of Emergency department Answers: 3-4 visits in the last 6 months Score: 14 Date Signed: 06/01/2018 02:53 PM Electronically Signed By:Bailey Vazquez RN
[2018-06-02] MEDS ORDERED: AZITHROMYCIN 250 MG TAB PO SCH (09:00)
[2018-06-02] MEDS ORDERED: SULFAMETHOX/TMP 800/160 MG 1 TAB PO SCH (09:00)
--- NOTE | 2018-06-19 14:50 | GDS ---
SERVICE: [facility] Hospitalist. CONSULTS: None. PROCEDURE: Echocardiogram done on admission which showed mild concentric left ventricular hypertroph y, normal systolic left ventricular function with an ejection fraction of 65% to 70%, a grade 1 diast olic dysfunction, mildly dilated left atrium, trivial tricuspid regurgitation, and some thickening of the mitral valves. HISTORY AND PHYSICAL: Please see previously dictated note by Dr. Krause. ADMISSION DIAGNOSES: 1. Supratherapeutic INR. 2. Anemia. 3. Elevated BNP. 4. Bilateral lung transplants. DISCHARGE DIAGNOSES: 1. Supratherapeutic INR, improving. 2. Anemia, stable. 3. Elevated BNP, no indication of acute congestive heart failure. 4. Acute kidney injury, improved. 5. Bilateral lung transplants. HOSPITAL COURSE: The patient was sent to the ER for evaluation because of an INR of 15. He was note d to be in acute renal failure with a creatinine of 2.4 and was also anemic with a hemoglobin of 8.6. He was admitted to the hospital for further evaluation and reversal of Coumadin. He was given bret min K and IV fluids. His Coumadin orally was held throughout his stay. Over the course of his hospi talization, his INR decreased and was 6.04 at discharge. He had no evidence of serious bleeding, alt gwen he was noted to have a Hemoccult-positive stool x1. He was noted to be anemic at admission wit h a hemoglobin of 8.6 and was given 1 unit of packed red blood cells transfusion. At discharge, his hemoglobin had been stable and the level was 10.0. This will need to be followed b y his outpatient primary care provider to consider further evaluation of colon and/or further transfu sions if needed. Creatinine gradually decreased, and the day of discharge, it was 1.7, which should be followed closely by his primary care provider. Per review of [employer], he had for this entire yea r had elevated creatinine levels with the lowest being 1.4. He had significant edema in his legs, bu t this decreased quite a bit with compression, ambulation, and as his kidney failure was improving. He did have an echocardiogram because of an elevated BNP (done at the same time that he was in acute kidney injury so very hard to interpret ) with essentially normal findings as above. I have had a lo ng discussion with him and his family about coming in immediately if he notes swelling in the future as this could be indicative of acute kidney injury again. On the day of discharge, he was feeling well. He had been afebrile throughout his stay. He had been on oxygen throughout his stay at 2 L, and this had remained stable, so home oxygen was arranged for him by Case Management. DISCHARGE INSTRUCTIONS: He is to continue all of his chronic medications with the exception that jazzmine sartan, iron, and Coumadin were held. He should follow up with his primary care provider, Umm oconnor DO, within the next 3-5 days and with the coagulation clinic within a few days also. /[id number]
== END 2018-06-01 17:01 | disposition home or self-care (01) | DRG 813 ==
LOC: F1N 18:36 → OBSVTOIN 05-31 16:36
PROVIDERS: ADMIT Internal Medicine; ATTEND Internal Medicine
DX: D68.4 Acquired coagulation factor deficiency (principal); N17.9 Acute kidney failure, unspecified; D64.9 Anemia, unspecified; C44.320 Squamous cell carcinoma of skin of unspecified parts of face; E78.5 Hyperlipidemia, unspecified; I25.10 Atherosclerotic heart disease of native coronary artery without angina pectoris; G47.33 Obstructive sleep apnea (adult) (pediatric); J44.9 Chronic obstructive pulmonary disease, unspecified; I10 Essential (primary) hypertension; Z86.718 Personal history of other venous thrombosis and embolism; Z79.01 Long term (current) use of anticoagulants; Z95.5 Presence of coronary angioplasty implant and graft; Z87.891 Personal history of nicotine dependence; Z92.3 Personal history of irradiation; Z94.2 Lung transplant status
CPT/HCPCS: 36415-PO; 73130-PO; 80197-90; G0378; J7512; P9016; P9017

== ENCOUNTER → 2018-06-05 | Outpatient (CLI) | payer OTHER | LOC: CIMAGING 15:37 | PROVIDERS: ATTEND Internal Medicine | DX: N17.9 Acute kidney failure, unspecified (principal); N28.1 Cyst of kidney, acquired | CPT/HCPCS: 76770-PO ==

== ENCOUNTER → 2018-08-07 | Outpatient (CLI) | payer OTHER | LOC: CIMAGING 12:18 | PROVIDERS: ATTEND Family Medicine | DX: M25.512 Pain in left shoulder (principal) | CPT/HCPCS: 73030-PO; 73060-PO ==

== ENCOUNTER → 2018-08-10 | Outpatient (CLI) | payer OTHER | LOC: FIMAGING 08:56 | PROVIDERS: ATTEND Family Medicine | DX: S46.812A Strain of other muscles, fascia and tendons at shoulder and upper arm level, left arm, initial encounter (principal) ==

== ENCOUNTER 2018-11-05 15:46 | Emergency (ER) | payer OTHER ==
[2018-11-05 16:03] VITALS: BP 170/78
[2018-11-05] MEDS ORDERED: FLUORESCEIN SODIUM 1 MG STRIP OP ONE (16:19)
[2018-11-05] MEDS ORDERED: PROPARACAINE 0.5% 15 ML OPHT DROP ONE (16:19)
[2018-11-05] MEDS ORDERED: OFLOXACIN 0.3% SOLN PREPACK OPHT.BTL TAKEHOME ONE (16:32)
--- NOTE | 2018-11-05 16:42 | EDPHY ---
H & P Time Seen by Provider: 11/05/18 15:53 HPI/ROS: HPI Right eye irritation. 78-year-old male by private vehicle. 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 He is currently undergoing chemotherapy and radiation therapy for this. He reports he has had chronic irritation and tearing involving his right eye because of this disease. He reports over the last several days it has been worse and he has had a purulent drainage. He is not a contact lens user. He denies any changes in vision. There is no history of ocular foreign body or ocular trauma. No history of UV exposure. He has appointments all day tomorrow and Saturday at [facility] with his oncologist. ROS: Constitutional: No fever, no chills. No weakness. Eyes: As above. Skin: No new rashes. Neurological: No headache. Past medical history: As above, hypertension, hyperlipidemia, DVT, lung transplant, prostatectomy, coronary artery disease with stents. Social history: He is . Currently here by himself. Nonsmoker. No alcohol. Physical Exam: General Appearance: Alert, no distress. This patient is responding to questions appropriately and in full sentences. This patient appears well- hydrated and well-nourished. Eyes: Pupils equal and round and reactive to light at 3-2 mm bilaterally. Advanced squamous cell carcinoma lesions involving the right face and right maxilla. The eyelids of the right eye both upper and lower are mildly injected and there is a watery purulent drainage. No foreign body is appreciated on gross inspection. Amin lamp exam with fluorescein staining; no Marina's sign, evidence of abrasion or ulceration. Slit-lamp exam; no hypopyon, no hyphema, anterior chamber is deep and clear, no cell/flare. He has no pain with extraocular movements. His left eye is unremarkable on gross inspection. Neurological: Motor sensory function is grossly intact. Cranial nerves are normal. Gait is normal. Skin: Warm and dry, as noted above. Extremities are symmetrical. All joints range without pain or impingement. Psychiatric: No agitation. No depression. Database: EKG: Imaging: Procedures: Emergency department course: Triage vital signs reviewed. He is moderately hypertensive. Vital signs are otherwise normal. He is afebrile. After above noted evaluation, he was started on ofloxacin ophthalmic drops. His triage note stated he had an allergy to Levaquin. 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 He has not had anaphylaxis. I feel that ofloxacin as broad- spectrum ophthalmic antibiotic is a good medication for his current problem and should not have any systemic involvement. He was started on this medication in the emergency department. I discussed ophthalmology follow-up within the next 2 days but he is going to be down visiting his oncologist's during this time. He will ask his oncologist for a follow-up [facility]. I will also give him the contact information for Dr. Phu Leslie in his group. He feels comfortable with this plan. Dosing of his medication was discussed. Return to emergency department precautions reviewed. All of his questions were answered. He was discharged from the emergency department in good condition. Differential Diagnosis: The differential diagnosis on this patient includes but is not limited to conjunctivitis. Ocular foreign body, uveitis, UV keratitis, corneal ulceration , corneal abrasion unlikely. This represents a partial list of diagnoses considered. These considerations are based on history, physical exam, past history, reassessment and diagnostic testing. Smoking Status: Former smoker Constitutional: Initial Vital Signs Temperature (C) 36.8 C 11/05/18 15:55 Heart Rate 70 11/05/18 15:55 Respiratory Rate 18 11/05/18 15:55 Blood Pressure 170/78 H 11/05/18 15:55 O2 Sat (%) 97 11/05/18 15:55 O2 Delivery Mode Room Air Allergies/Adverse Reactions: levofloxacin [From Levaquin] Allergy (Verified 11/05/18 15:54) Sulfa (Sulfonamide Antibiotics) Allergy (Verified 11/05/18 15:54) Home Medications: Medication Instructions Recorded Alendronate Sodium 35 mg PO MARTINES 03/26/16 Azithromycin 500 mg PO MWF 03/26/16 Docusate Sodium [Colace 100 MG (*)] 200 mg PO BID 03/26/16 Everolimus [Zortress] 0.25 mg PO DAILY 03/26/16 Itraconazole [Sporanox 100 mg (*)] 100 mg PO HS 03/26/16 Magnesium Oxide [Magnesium Oxide 400 mg PO BID 03/26/16 400 mg (*)] Metoprolol Tartrate [Lopressor 25 25 mg PO BID 03/26/16 mg (*)] Pravastatin Sodium 20 mg PO HS 03/26/16 Pyridoxine HCl [Vitamin B-6 100 mg 50 mg PO HS 03/26/16 (*)] Sulfamethox/Tmp 800/160 mg 1 tab PO MWF 03/26/16 [Bactrim DS] Tacrolimus Anhydrous [Prograf 0.5 1 mg PO BID 03/26/16 MG (*)] predniSONE 5 mg PO DAILY 03/26/16 valGANciclovir [ValCYTE] 450 mg PO BID 03/26/16 Acetaminophen [Tylenol 325mg (*)] 650 mg PO Q4 PRN #0 tab 03/28/16 Calcium Carb W/Vit D [Calcium Carb 500 mg PO BID 01/03/18 W/Vit D 500/200 (*)] Everolimus [Zortress] 0.5 mg PO HS 01/04/18 Pramipexole Di-HCl [Mirapex] 0.5 mg PO HS 05/30/18 Pregabalin [Lyrica 75mg (*)] 75 mg PO BID 05/30/18 traMADol [Ultram 50 mg (*)] 50 mg PO Q6 PRN 05/30/18 Medical Decision Making - Data Points Medications Given: Discontinued Medications Ofloxacin (Ocuflox 0.3% Opht Drops Prepack) 1 btl [place] EDNOW ONE Stop: 11/05/18 16:33 Last Admin: 11/05/18 16:40 Dose: 1 btl Departure - Departure Disposition: Home, Routine, Self-Care Clinical Impression: Conjunctivitis Condition: Good Instructions: Ofloxacin (Into the eye), Conjunctivitis (ED) Additional Instructions: Read and follow provided instructions. Follow-up with your primary care physician in 1-2 days for re-evaluation. Ofloxacin ophthalmic eye medication: 1-2 drops to the right eye every 2-4 hours while awake on days 1 and 2, then on days 3 through 7, 1-2 drops to the right eye 4 times daily or every 6 hr. Follow-up with Ophthalmology through your oncologist as discussed within the next [address] Chaparro Leslie or 1 of his associates here in [place] within that time frame. Return to the emergency department for worsening irritation, pain, drainage of pus, changes in vision, headache or other serious concerns. Referrals: Chaparro Leslie MD [Medical Doctor] - As per Instructions
[2018-11-05] MEDS ORDERED: OFLOXACIN 0.3% 5ML OPHT DROPS RTEYE SCH (18:00)
== END 2018-11-05 16:52 | disposition home or self-care (01) ==
LOC: CED 15:46
DX: H10.9 Unspecified conjunctivitis (principal)
CPT/HCPCS: 99283-ER

== ENCOUNTER → 2018-12-26 | Outpatient (CLI) | payer OTHER | LOC: FIMAGING 10:25 ==

== ENCOUNTER → 2019-01-13 | Outpatient (CLI) | payer OTHER | LOC: CIMAGING 08:45 ==